=== PATIENT | male | born 1960 | race Caucasian/White ===

== ENCOUNTER 2024-06-24 14:30 | Inpatient (IN) | payer BC, SELFPAY ==
[2024-06-24] VITALS (15 sets, daily range): BP systolic 133–164; BP diastolic 85–125; BMI 35.8
--- NOTE | 2024-06-24 12:04 | ED.GENMED ---
History of Present Illness
<LUX Newby - Last Filed: 06/24/24 13:56>
General
Chief Complaint: Abdominal Symptoms
Source: patient
Exam Limitations: none
Time Seen by Provider: 06/24/24 11:54
Nursing documentation reviewed up to this point in time: agreed with
History of Present Illness
History of Present Illness:
Patient is a 61-year-old male who presents to the ER for evaluation of abdominal discomfort since last with decreased appetite bloating some liquidy diarrhea. Patient reports that he developed cough several days ago and was very short of breath
today with exertion. reports patient had some swelling in his lower extremities for a while. Patient denies any associated chest pain. He denies any history of clotting disorder or DVT PE in the past. He does have a history of hypertension
takes amlodipine. He is followed by functional medicine specialist. He has never been seen by cardiology. He reports he did have a low-grade fever of 99.
Review of Systems
<LUX Newby - Last Filed: 06/24/24 13:56>
Review of Systems
Allergies reviewed?: Yes
Other source history: family
All Other Systems: ROS reviewed and negative except as documented in HPI and ROS
Constitutional: Reports fever
EENT: Reports no symptoms
Respiratory: Reports cough and trouble breathing
Cardiac: Reports no symptoms; Denies chest pain
ABD/GI: Reports abdominal pain, diarrhea and other (bloating dec appetite )
: Reports no symptoms
Musculoskeletal: Reports other (Off-and-on chronic lower extremity swelling)
Skin: Reports no symptoms
Hematologic/Lymphatic: Reports no symptoms
Psychiatric: Reports no symptoms
Phy Exam
<LUX Newby - Last Filed: 06/24/24 13:56>
General Physical Exam
General Presentation: no apparent distress
General age: appears stated age
General Skin: warm and dry
General Habitus: normal
General Mental: alert
General Hydration: appears well hydrated
Cardiovascular Exam
Cardiovascular Exam: regular rate/rhythm, no murmur and normal peripheral pulses
Pulmonary Exam
Pulmonary Exam: other (+ cough slight exp wheeze that cleared with cough )
Neurological Exam
Neurological Exam: alert and oriented x3
Musculoskeletal Exam
Musculoskeletal Exam: full ROM
Skin Exam
Skin Exam: normal color and warm/dry
Psychiatric Exam
Psychiatric Exam: normal mood/affect
Course
<LUX Newby - Last Filed: 06/24/24 13:56>
Orders/Labs/Results
Orders:
Orders
06/24/24 12:12
Cardiac Monitoring- Treatment ONCE
06/24/24 12:13
Portable Chest Xray [CR Chest Portable - 1 View] Urgent
Comment:
Reason For Exam: sob
Reason Study Needs to be Portable: Unable to Transport
06/24/24 12:15
Electrocardiogram (*1) Stat
Reason for Study: Other
Other Reason for Exam: chest pain
Cardiac Monitoring- Treatment ONCE
EKG- Treatment ONCE
06/24/24 12:16
IV Insert/Care/Rem.- Treatment PRN
06/24/24 12:28
Complete Blood Count/With Diff Urgent
Comprehensive Metabolic Panel Urgent
DDimer [D-Dimer] Urgent
Lipase Urgent
Pro-BNP [NT-proBNP] Urgent
Troponin I Urgent
06/24/24 12:53
CT Abd/pelvis W Iv Cont Urgent
Comment:
Reason For Exam: abd pain
Azithromycin 500 mg/250 ml [Zithromax Infusion] 500 mg in 250 ml IV NOW
CefTRIAXone [Rocephin] 1,000 mg IV NOW STA
06/24/24 12:54
Furosemide [Lasix] 40 mg IV NOW STA
06/24/24 12:59
Lactic Acid Urgent
Sterile Water [Sterile Water For Injection] 10 ml .ROUTE .STK-MED ONE
06/24/24 13:18
Aspirin Chewable [Low Strength Aspirin] 324 mg PO NOW STA
06/24/24 13:43
Heparin 4,000 units IV NOW STA
Nitroglycerin 100 mg/250 ml [Nitroglycerin Premix] 100 mg in 250 ml IV NOW
Initial dose in mcg/min, then titrate:: 5
Titrate to keep:: SBP < 160 mmHg
Titrate by mcg/min:: 5 mcg/min, may increase by 10 mcg/min if dose > 20 mcg/min
Frequency of titrations (minutes):: every 3-5 minutes
Maximum dose in mcg/min:: 200
Begin to taper infusion when:: Remained at goal for 2hrs
Taper by mcg/min:: 5 mcg/min
Frequency of taper (minutes) if patient maintains goal:: 30
Taper to off?: Yes
If infusion off & no longer maintaining goal:: Contact Provider
Pharmacy Request to Place See Dose Instructions PO NOW STA
Discontinue all Active Warfarin orders?: Yes
06/24/24 13:44
PTT Urgent
Comment: Obtain baseline before beginning heparin infusion if not already collected
Nursing to Place Non Medication Order As Directed
Physician Order: PTT 6 hours after initial start of Heparin infusion
06/24/24 13:45
Heparin 80019 Units/250 ml 25,000 units in 250 ml IV PER PROTOCOL
Weight to be used for heparin protocol in kilograms (kg):: 129.8
Protocol:: Cardiac Tx/Acute Coronary
PTT Goal Range to be used:: PTT 73 to 111 seconds
Order type:: Initial
INITIAL Infusion Dose (UNITS/KG/hr) & then follow protocol:: 12 units/kg/hr
Infusion Dose in UNITS/hr & then follow protocol (UNITS/hr):: 1,000
INFUSION RATE in mL/hr & then follow protocol (mL/hr):: 10
PTT less than or equal to 64 seconds:: Increase rate by 200 units/hr (+ 2 mL/hr)
PTT 64.1 to 72.9 seconds:: Increase rate by 100 units/hr (+ 1 mL/hr)
PTT 73 to 111 seconds:: Target Range. No change in rate.
PTT 111.1 to 130.9 seconds:: Decrease rate by 100 units/hr (- 1 mL/hr)
PTT 131 to 199.9 seconds:: HOLD for 1 hr. Then decrease rate by 200 units/hr (- 2 mL/hr)
PTT greater than or equal to 200 seconds:: HOLD for 2 hrs & Notify Provider. Then decrease by 200 units/hr (-
2 mL/hr)
Lab follow-up:: Each change, PTT q6h until 2 consecutive are therapeutic. Then PTT
daily.
06/24/24 13:53
Echo 2D MMode Color/Doppler Stat
Reason for Study: CHF/ACS
Cardiology Consult: Heber Baca
06/24/24 13:55
Consult Cardiology [CARDIOLOGY CONSULT] Routine
Consulting Provider: Heber Jon
Was physician already notified: Yes
Reason for consult: elevated troponin
Atorvastatin [Lipitor] 80 mg PO QPM
06/24/24 13:59
Electrocardiogram (*1) Routine
Reason for Study: Chest Pain
06/24/24 14:[address] See Dose Instructions IV DIRECTED
06/24/24 14:10
Admit/Transfer Patient As Directed
Co-Sign Provider:
Level of Care: Inpatient admission
Assign to:: IVU
Physician / Group: josseline
Diagnosis: nstemi
Reason for Hospitalization: nstemi
Expected length of stay greater than two midnights?: Yes
ELOS- Estimated Length of Stay in days: 2
I certify the patient meets the requirements for IP care: Yes
Code Status As Directed
Resuscitation Status: Full Code
PRN Pain Medication Management As Directed
May give lesser potent ordered pain med per pt: Yes
preference::
Protocol:: Medication orders for pain may be administered in a
manner that supports deferring to patient preference
when the pt is:
- Requesting an ordered lesser potent pain medication.
Least to most potent pain medications are defined
as: acetaminophen < NSAID < tramadol < opioids
(morphine, oxycodone, hydromorphone).
- Requesting a lesser dose of the same medication IF
ORDERED.
- Requesting a less intrusive route of administration
if both routes are prescribed by the provider (PO <
IV).
06/24/24 14:20
COVID-19 Antigen Urgent
Source: Nasal Swab
Respiratory Culture/Gram Stain Urgent
DAVIDE Source: Sputum
Specimen Description:
06/24/24 14:30
Troponin I Stat
06/24/24 16:00
Furosemide [Lasix] 40 mg IV BID AT 0800,1600
06/25/24 08:00
Amlodipine [Norvasc] 10 mg PO DAILY
Aspirin Low Dose EC [Aspir Low (Enteric Coated)] 81 mg PO DAILY
Abnormal Lab Results
06/24/24
12:28
WBC 15.9 H 10^3/uL
(4.8-10.8)
RBC 4.54 L 10^6/uL
(4.70-6.10)
Hct 38.8 L %
(39.0-52.0)
MPV 10.7 H fL
(7.4-10.4)
Abs Immat Gran (auto) 0.1 H 10^3/uL
(0-0.05)
Absolute Neuts (auto) 12.9 H 10^3/uL
(1.4-6.5)
Absolute Monos (auto) 0.9 H 10^3/uL
(0.1-0.6)
Immature Gran % 0.6 H %
(0-0.5)
Neutrophils % 80.8 H %
(42.2-75.2)
Lymphocytes % 12.4 L %
(20.5-51.1)
D-Dimer 1.03 H ug/mlFEU
(0.00-0.50)
BUN 34 H mg/dl
(9-20)
Creatinine 1.5 H mg/dL
(0.7-1.3)
Glucose 122 H mg/dl
(70-99)
ALT 62 H U/L
(0-50)
Troponin I 4.030 H* ng/ml
06/24/24 12:28
06/24/24 12:28
Vital Signs
Initial and Last Documented VS:
Initial Vital Signs
Temp Pulse Resp BP Pulse Ox
97.5 F 89 16 144/95 94
06/24/24 11:18 06/24/24 11:18 06/24/24 11:18 06/24/24 11:18 06/24/24 11:18
Last Documented Vital Signs
Temp Pulse Resp BP Pulse Ox
98.5 F 99 29 143/110 83
06/24/24 12:12 06/24/24 14:30 06/24/24 14:30 06/24/24 12:39 06/24/24 14:30
Furniture Removalist'S Assistant consulted with Physician
Furniture Removalist'S Assistant consulted with physician?: Yes
Name of Physician Consulted: Jess
<Alia Mercado MD - Last Filed: 06/24/24 14:50>
Orders/Labs/Results
Orders:
Orders
06/24/24 12:12
Cardiac Monitoring- Treatment ONCE
06/24/24 12:13
Portable Chest Xray [CR Chest Portable - 1 View] Urgent
Comment:
Reason For Exam: sob
Reason Study Needs to be Portable: Unable to Transport
06/24/24 12:15
Electrocardiogram (*1) Stat
Reason for Study: Other
Other Reason for Exam: chest pain
Cardiac Monitoring- Treatment ONCE
EKG- Treatment ONCE
06/24/24 12:16
IV Insert/Care/Rem.- Treatment PRN
06/24/24 12:28
Complete Blood Count/With Diff Urgent
Comprehensive Metabolic Panel Urgent
DDimer [D-Dimer] Urgent
Lipase Urgent
Pro-BNP [NT-proBNP] Urgent
Troponin I Urgent
06/24/24 12:53
CT Abd/pelvis W Iv Cont Urgent
Comment:
Reason For Exam: abd pain
Azithromycin 500 mg/250 ml [Zithromax Infusion] 500 mg in 250 ml IV NOW
CefTRIAXone [Rocephin] 1,000 mg IV NOW STA
06/24/24 12:54
Furosemide [Lasix] 40 mg IV NOW STA
06/24/24 12:59
Lactic Acid Urgent
Sterile Water [Sterile Water For Injection] 10 ml .ROUTE .STK-MED ONE
06/24/24 13:18
Aspirin Chewable [Low Strength Aspirin] 324 mg PO NOW STA
06/24/24 13:43
Heparin 4,000 units IV NOW STA
Nitroglycerin 100 mg/250 ml [Nitroglycerin Premix] 100 mg in 250 ml IV NOW
Initial dose in mcg/min, then titrate:: 5
Titrate to keep:: SBP < 160 mmHg
Titrate by mcg/min:: 5 mcg/min, may increase by 10 mcg/min if dose > 20 mcg/min
Frequency of titrations (minutes):: every 3-5 minutes
Maximum dose in mcg/min:: 200
Begin to taper infusion when:: Remained at goal for 2hrs
Taper by mcg/min:: 5 mcg/min
Frequency of taper (minutes) if patient maintains goal:: 30
Taper to off?: Yes
If infusion off & no longer maintaining goal:: Contact Provider
Pharmacy Request to Place See Dose Instructions PO NOW STA
Discontinue all Active Warfarin orders?: Yes
06/24/24 13:44
PTT Urgent
Comment: Obtain baseline before beginning heparin infusion if not already collected
Nursing to Place Non Medication Order As Directed
Physician Order: PTT 6 hours after initial start of Heparin infusion
06/24/24 13:45
Heparin 78354 Units/250 ml 25,000 units in 250 ml IV PER PROTOCOL
Weight to be used for heparin protocol in kilograms (kg):: 129.8
Protocol:: Cardiac Tx/Acute Coronary
PTT Goal Range to be used:: PTT 73 to 111 seconds
Order type:: Initial
INITIAL Infusion Dose (UNITS/KG/hr) & then follow protocol:: 12 units/kg/hr
Infusion Dose in UNITS/hr & then follow protocol (UNITS/hr):: 1,000
INFUSION RATE in mL/hr & then follow protocol (mL/hr):: 10
PTT less than or equal to 64 seconds:: Increase rate by 200 units/hr (+ 2 mL/hr)
PTT 64.1 to 72.9 seconds:: Increase rate by 100 units/hr (+ 1 mL/hr)
PTT 73 to 111 seconds:: Target Range. No change in rate.
PTT 111.1 to 130.9 seconds:: Decrease rate by 100 units/hr (- 1 mL/hr)
PTT 131 to 199.9 seconds:: HOLD for 1 hr. Then decrease rate by 200 units/hr (- 2 mL/hr)
PTT greater than or equal to 200 seconds:: HOLD for 2 hrs & Notify Provider. Then decrease by 200 units/hr (-
2 mL/hr)
Lab follow-up:: Each change, PTT q6h until 2 consecutive are therapeutic. Then PTT
daily.
10/05/24 13:53
Echo 2D MMode Color/Doppler Stat
Reason for Study: CHF/ACS
Cardiology Consult: Heber Baca
06/24/24 13:55
Consult Cardiology [CARDIOLOGY CONSULT] Routine
Consulting Provider: Heber Jon
Was physician already notified: Yes
Reason for consult: elevated troponin
Atorvastatin [Lipitor] 80 mg PO QPM
06/24/24 13:59
Electrocardiogram (*1) Routine
Reason for Study: Chest Pain
06/24/24 14:[address] See Dose Instructions IV DIRECTED
06/24/24 14:10
Admit/Transfer Patient As Directed
Co-Sign Provider:
Level of Care: Inpatient admission
Assign to:: IVU
Physician / Group: josseline
Diagnosis: nstemi
Reason for Hospitalization: nstemi
Expected length of stay greater than two midnights?: Yes
ELOS- Estimated Length of Stay in days: 2
I certify the patient meets the requirements for IP care: Yes
Code Status As Directed
Resuscitation Status: Full Code
PRN Pain Medication Management As Directed
May give lesser potent ordered pain med per pt: Yes
preference::
Protocol:: Medication orders for pain may be administered in a
manner that supports deferring to patient preference
when the pt is:
- Requesting an ordered lesser potent pain medication.
Least to most potent pain medications are defined
as: acetaminophen < NSAID < tramadol < opioids
(morphine, oxycodone, hydromorphone).
- Requesting a lesser dose of the same medication IF
ORDERED.
- Requesting a less intrusive route of administration
if both routes are prescribed by the provider (PO <
IV).
06/24/24 14:20
COVID-19 Antigen Urgent
Source: Nasal Swab
Respiratory Culture/Gram Stain Urgent
DAVIDE Source: Sputum
Specimen Description:
06/24/24 14:30
Troponin I Stat
06/24/24 16:00
Furosemide [Lasix] 40 mg IV BID AT 0800,1600
06/25/24 08:00
Amlodipine [Norvasc] 10 mg PO DAILY
Aspirin Low Dose EC [Aspir Low (Enteric Coated)] 81 mg PO DAILY
Abnormal Lab Results
06/24/24
12:28
WBC 15.9 H 10^3/uL
(4.8-10.8)
RBC 4.54 L 10^6/uL
(4.70-6.10)
Hct 38.8 L %
(39.0-52.0)
MPV 10.7 H fL
(7.4-10.4)
Abs Immat Gran (auto) 0.1 H 10^3/uL
(0-0.05)
Absolute Neuts (auto) 12.9 H 10^3/uL
(1.4-6.5)
Absolute Monos (auto) 0.9 H 10^3/uL
(0.1-0.6)
Immature Gran % 0.6 H %
(0-0.5)
Neutrophils % 80.8 H %
(42.2-75.2)
Lymphocytes % 12.4 L %
(20.5-51.1)
D-Dimer 1.03 H ug/mlFEU
(0.00-0.50)
BUN 34 H mg/dl
(9-20)
Creatinine 1.5 H mg/dL
(0.7-1.3)
Glucose 122 H mg/dl
(70-99)
ALT 62 H U/L
(0-50)
Troponin I 4.030 H* ng/ml
06/24/24 12:28
06/24/24 12:28
Vital Signs
Initial and Last Documented VS:
Initial Vital Signs
Temp Pulse Resp BP Pulse Ox
97.5 F 89 16 144/95 94
06/24/24 11:18 06/24/24 11:18 06/24/24 11:18 06/24/24 11:18 06/24/24 11:18
Last Documented Vital Signs
Temp Pulse Resp BP Pulse Ox
98.5 F 99 29 143/110 83
06/24/24 12:12 06/24/24 14:30 06/24/24 14:30 06/24/24 12:39 06/24/24 14:30
<LUX Newby - Last Filed: 06/24/24 13:56>
MDM/Problems Addressed
MDM/Problems Addressed:
Patient is document is a 61-year-old male who presented with abdominal pain bloating and recent cough temp was 99 at home yesterday with short shortness of breath shortness of breath that worsened today. reports he has had intermittent
swelling of his legs. Patient was very tachypneic with ambulation. Patient presents hypoxic mildly tachycardic right middle expiratory wheeze that clears with coughing. He is hypoxic was placed on 2 L. Portable chest x-ray does show an moderate
to severe CHF there is a suspected superimposed left upper lobe pneumonia which is consistent with his presentation of cough low-grade fever and elevated white count. Will treat Lasix for CHF will give community-acquired pneumonia antibx. No
documented cardiac history. He is followed by family doctor who is a functional medicine specialist.
Will check CAT scan of the abdomen abdominal pain bloating however patient will require admission .
Lab called patient's troponin is elevated at 4.03 and there is elevation on patient's EKG with reciprocal changes patient has no chest pain the only thing he complains about is abdominal bloating for the past week. Christin at bedside . d/c with
cardiology repairer controller tester.
Patient evaluated by cardiology as discussed IV nitro as well as IV heparin ordered plan to do echo. Patient to be admitted to the hospital service discussed with admitting hospitalist.
Chronic conditions affecting care:
htn
<LUX Newby - Last Filed: 06/24/24 13:56>
*Radiology
Radiology exam reviewed: radiology read reviewed
*Pulse Oximetry
Patient hypoxic: yes
*EKG
Interpreted by ED Provider?: Yes
Interpretation: abnormal
Heart Rate: 92
Rate: normal
Rhythm: sinus
Ischemia: ST elevation
*Critical Care Note
Total Time (30-74mins, 75-104mins- exclusive of procedures): Not Applicable
comment:
Critical care statement: A total of 40 minutes of critical care time was provided for this patient. This includes management of unstable vital signs, evaluation of the patient at bedside, reviewing the patient's pertinent medical records, discussion
with consultants, review of old EKGs and review of pertinent medical records. This time with separate from time utilized to perform the aforementioned documented procedures
<LUX Newby - Last Filed: 06/24/24 13:56>
Patient Management
Discussion with other providers: Wrapping Clerk (cardiology: DR Baca )
ED Attending Note
<LUX Newby - Last Filed: 06/24/24 13:56>
-
Portions of this chart may have been created with voice recognition software.� Occasional wrong word or��sound alike� substitutions may have occurred due to the inherent limitations of voice recognition software.
<Alia Mercado MD - Last Filed: 06/24/24 14:50>
ED Attending Note
Patient seen and examined by attending physician: Yes
I performed the substantive portion of visit, reviewed & personally made and approve the management plan that is documented in note by myself or CHAPINCITO.: Yes
ED Attending Note:
Patient appears tachypneic but is fully awake and conversational. Patient has decreased breath sounds with bilateral crackles. Abdomen is soft and mildly distended. Patient's lab work and EKG are concerning for non-STEMI. For now, patient will
be started on Lasix, aspirin, nitro drip and heparin drip for treatment for non-STEMI and CHF
Discharge Plan
Departure
Patient Disposition: Admit
Date of Disposition: 06/24/24
Time of Disposition: 13:47
Admit to: ICU
Admit to doctor: hosptitalist
Presentation/result/management discussed w/ accepting MD/DO: Hospitalist
Patient with high blood pressure during this ER visit?: Yes
Condition: Critical
Discharge Problem:
stemi, CHF (congestive heart failure), Pneumonia
Interventions
Interventions:
*Risk Screen - Suicide Last Done: 06/24/24 11:18
*Neglect/Abuse Screening Last Done: 06/24/24 11:18
ED- Fall Risk Assessment Last Done: 06/24/24 12:32
*ED COVID-19 Vaccine History Last Done: 06/24/24 12:14
PW-Bjwlnb-Njpuavvwen Assessment Last Done: 06/24/24 12:06
[2024-06-24 12:39] LABS: % Basophils 0.3 % (0-2); % Eosinophils 0.1 % (0-6); % Immature Granulocytes 0.6 % (0-0.5); % Lymphocytes 12.4 % (20.5-51.1); % Monocytes 5.8 % (1.7-9.3); % Neutrophils 80.8 % (42.2-75.2); Absolute Immature Granulocytes 0.1 10^3/uL (0-0.05); Absolute Monocytes 0.9 10^3/uL (0.1-0.6); Absolute Neutrophils 12.9 10^3/uL (1.4-6.5); Hematocrit 38.8 % (39.0-52.0); Hemoglobin 13.3 g/dL (13.0-18.0); Mean Corp Hgb Conc. 34.3 g/dL (33.0-37.0); Mean Corpuscular Hgb 29.3 pg (27.0-31.0); Mean Corpuscular Volume 85.5 fL (80.0-94.0); Mean Platelet Volume 10.7 fL (7.4-10.4); Nucleated Red Blood Cells % 0 % (-); Platelet Count 354 10^3/uL (130-400); Red Blood Cell Count 4.54 10^6/uL (4.70-6.10); Red Cell Dist. Width 14.2 % (11.5-14.5); White Blood Cell Count 15.9 10^3/uL (4.8-10.8)
[2024-06-24 12:51] LABS: ALT (SGPT) 62 U/L (0-50); AST (SGOT) 47 U/L (17-59); Albumin 4.2 g/dl (3.5-5.0); Alkaline Phosphatase 60 U/L (38-126); Blood Urea Nitrogen 34 mg/dl (9-20); Calcium 9.2 mg/dl (8.4-10.2); Carbon Dioxide 23 mmol/L (22-30); Chloride 105 mmol/L (98-107); Estimated Creatinine Clearance 74 ml/min; Glucose 122 mg/dl (70-99); Lipase 101 U/L (23-300); Potassium 4.2 mmol/L (3.5-5.1); Sodium 142 mmol/L (135-145); Total Bilirubin 1.1 mg/dl (0.2-1.3); Total Protein 7.3 g/dl (6.3-8.2); eGFR 52.31
[2024-06-24 13:10] LABS: D-Dimer 1.03 ug/mlFEU (0.00-0.50)
[2024-06-24 13:20] LABS: NT-proBNP 3300 pg/ml
[2024-06-24] MEDS: LASIX 40 MG IV ×2 (13:34→15:55)
[2024-06-24] MEDS: ZITHROMAX INFUSION 250 IV (13:37)
[2024-06-24] MEDS: ROCEPHIN 1000 MG IV (13:38)
[2024-06-24] MEDS: LOW STRENGTH ASPIRIN 324 MG PO (13:43)
--- NOTE | 2024-06-24 14:21 | HPS.HSE ---
Family Physician
-
Family Physician: Alia Reddy MD
Chief Complaint
-
chest discomfort
History of Present Illness
63-year-old male past medical history of hypertension, prediabetes, presenting with abdominal discomfort, decreased appetite, and nausea which originally started 1 week ago associate with loose stools. He tried taking Tylenol and Gas-X with some
improvement.
Yesterday he developed chest congestion, productive cough, chills associate with shortness of breath with exertion. He has been continue to have loose stools. He has been having lower extremity edema for some time. He is unsure if he has gained
or lost weight. He has never seen a nursery attendant.
He denies any recent antibiotic use. No sick contacts. No sore throat.
No family history of heart disease.
Denies smoking or alcohol use.
Medical History
Past Medical History
Past Medical History: Reports Other ( hypertension, prediabetes, )
Past Surgical History: Reports None
Social History
Tobacco: Non-smoker
Alcohol: None
Drug: None
Family History
Family History: Not pertinent
Allergies / Home Medications
Allergies reflects when Allergies were last updated in [employer].
Home Medications with original date entered in [employer]
Allergy/Medication List:
Allergies
Allergy/AdvReac Type Severity Reaction Status Date / Time
No Known Allergies Allergy Unverified 06/24/24 11:18
Review of Systems
-
History Source: Patient
A 12 point ROS was completed and negative except as noted: Yes
Constitutional: Reports No Symptoms
EENT: Reports No Symptoms
Respiratory: Reports See HPI
Cardiac: Reports See HPI
Abdomen/GI: Reports See HPI
: Reports No Symptoms
Musculoskeletal: Reports No Symptoms
Skin: Reports No Symptoms
Neurological: Reports No Symptoms
Endocrine: Reports No Symptoms
Hematologic/Lymphatic: Reports No Symptoms
Psych: Reports No Symptoms
Physical Exam
Vital Signs
Vital Signs
Temp Pulse Resp BP Pulse Ox
98.5 F 93 22 164/125 90
06/24/24 12:12 06/24/24 12:12 06/24/24 12:12 06/24/24 12:12 06/24/24 12:12
Physical Exam
General: Well Developed, Well Nourished and No Apparent Distress
HEENT: NormoCephalic, Moist mucous membranes and Atraumatic
Respiratory: Clear
Cardiac: S1/S2, Regular Rhythm and Peripheral Edema; No Murmur or Rub
GI: Soft, Non Tender, Non Distended and Normal Bowel Sounds; No Organomegaly
Rectal: Deferred by Provider
Musculoskeletal: No Clubbing, No Cyanosis and No Edema
Skin: No Rash
Neuro: Nonfocal/grossly intact
Laboratory Results
-
06/24/24 12:28
06/24/24 12:28
Laboratory Results
Total Bilirubin 1.1 mg/dl (0.2-1.3) 06/24/24 12:28
AST 47 U/L (17-59) 06/24/24 12:28
ALT 62 U/L (0-50) H 06/24/24 12:28
Alkaline Phosphatase 60 U/L (38-126) 06/24/24 12:28
Troponin I 4.030 ng/ml H* 06/24/24 12:28
Lipase 101 U/L (23-300) 06/24/24 12:28
Data Reviewed
-
Lab Data: Labs Reviewed by me
Old Records: Reviewed
Impression/Plan
-
IMPRESSION:
PLAN:
# NSTEMI
-EKG shows St elevation in v2, depressions in leads aVF, aVL, V6
-Troponin of 4 continue to trend
-Aspirin given
-Heparin drip
-Nitroglycerin drip
-Check A1c and lipid panel
-Echo
-N.p.o. for now, as catheterization may be necessary if patient clinically worsens otherwise plan for catheterization on Wednesday
# Acute CHF exacerbation
-Cardiac BNP of 3300
-Chest x-ray shows moderate to severe CHF
-Check I's and O's, daily weights
-40 IV Lasix twice daily
# Left upper lobe pneumonia
-Leukocytosis
-Check sputum culture
-Ceftriaxone/azithromycin
-Mucinex
-Check COVID
# Abdominal discomfort/loose stools
-CT abdomen pelvis pending
Chronic kidney disease
-Creatinine 1.5 from 1.3 four years ago
Essential hypertension
-Continue amlodipine
History of prediabetes
Full code
DVT prophylaxis�heparin drip
Cardiac diet
[2024-06-24] MEDS: NITROGLYCERIN PREMIX 250 IV (14:57)
[2024-06-24 15:11] LABS: APTT 36.7 Sec (23.4-35.0)
[2024-06-24 15:12] LABS: Lactic Acid 2.3 mmol/L (0.7-2.0)
[2024-06-24 15:16] LABS: COVID-19 Antigen Negative (Negative)
[2024-06-24] MEDS: HEPARIN 4000 UNITS IV (15:21)
[2024-06-24] MEDS: HEPARIN 25000 UNITS/250 ML IV (15:25)
[2024-06-24 17:24] LABS: ACT-LR - POC 163 Seconds (116-155)
[2024-06-24 17:39] LABS: ACT-LR - POC 190 Seconds (116-155)
[2024-06-24 17:52] LABS: ACT-LR - POC 258 Seconds (116-155)
--- NOTE | 2024-06-24 18:19 | PTCARENOTE ---
Pt arrived from ED via stretcher, heparin infusion in progress, nitroglycerin infusion at 5mcg. Pt denied any discomfort but appeared SOB at rest, needing to sit up, on 4L oxygen. Pt seen by . Pt taken to casting house laborer at @16:55.
[2024-06-24 18:24] LABS: ACT-LR - POC 178 Seconds (116-155)
--- NOTE | 2024-06-24 18:40 | ITS.CL.CATH ---
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
Cardiac Catheterization
Procedure Report:
LEFT HEART CATH AND CORONARY INTERVENTION
Date of Procedure: June 24, 2024
Referring: Dr. Heber Jon
PROCEDURES:
1. Left heart catheterization with coronary angiography
2. Successful stenting of the proximal LAD with a 3.0 x 22 mm Jefferson stent that was postdilated to 20 dawood
3. Intravascular ultrasound
INDICATION: This is a 63-year-old gentleman with a PMH notable for hypertension who presented to [facility] with complaints of shortness of breath and abdominal discomfort. He absolutely denied any chest discomfort. He approximately 5
days ago he experienced epigastric pressure and chest discomfort while his was out of town. His symptoms lasted several hours. Then during the week he felt better but about 2-3 days ago he became more short of breath and presented to
[facility] with complaints of abdominal discomfort. He was markedly hypertensive with blood pressures of 165/125 mmHg. He was started on antibiotics for a possible community acquired pneumonia. His troponin returned at 4.03 ng/ml. He
was started on IV heparin and IV nitroglycerin. A stat echocardiogram was performed and was notable for an estimated ejection fraction of 30-35% and wall motion abnormality in LAD distribution. He remained very short of breath, however, was
comfortable and denied any chest discomfort. His repeat troponin returned at 3.54 ng/ml. Unfortunately, he remained very hypertensive and short of breath and ultimately the decision was made to refer for coronary angiography
ACCESS: Right radial artery, 6 Angolan sheath. Unsuccessful right common femoral venous access using ultrasound guidance. Several arterial punctures occurred. Manual pressure was held after attempted access and at the conclusion of the procedure
when a small hematoma was noted.
HEMODYNAMICS (mmHg):
AO (s/d, m) : 129/93, 109
LV (s/d) : 130/23
LVEDP : 37
CORONARY FINDINGS
Dominance: Right
LEFT MAIN: Normal
LEFT ANTERIOR DESCENDING: The LAD arises normally from the left main and runs in the anterior interventricular groove. The LAD becomes 100% occluded beyond the first septal wrap knitting machine operator. The distal vessel is noted to fill via right to left
collaterals
CIRCUMFLEX: The circumflex is a medium caliber nondominant vessel giving rise to a single large obtuse marginal branch and several smaller obtuse marginal branches. Only minor irregularities are noted.
RIGHT CORONARY: The right coronary artery is a large-caliber dominant vessel that is widely patent and demonstrates only minor luminal irregularities over its course the PDA is large and the posterolateral branch is large.
VENTRICULOGRAPHY: Not done
ANGIOPLASTY PROCEDURE DETAIL: Upon review of the diagnostic catheterization images the decision was made to proceed with percutaneous revascularization of the occluded segment in the proximal LAD given the patient's heart failure and respiratory
insufficiency. Patient had received 324 mg of aspirin in the emergency room but vomited and was not sure if he was able to keep the medication down. An additional 324 mg of aspirin was given prior to referred for coronary angiography. Double
bolus Integrilin was administered as he was antiplatelet na�ve coming into the procedure. Intravenous heparin was given and the ACT was monitored throughout the procedure.
The origin of the left main was cannulated with a 6 Angolan EBU 3.75 guiding catheter. A long BMW guidewire crossed the occluded segment and was advanced to the first diagonal branch. A second short BMW guidewire was advanced to the true LAD apex.
Balloon predilation was performed using a 2.5 x 15 mm Euphora balloon. Antegrade flow was reestablished into the mid LAD and diagonal branch. A 3.0 x 22 mm Jefferson stent was then positioned with angiographic and fluoroscopic guided. The stent was
implanted at nominal pressures. Intravascular ultrasound was then performed in the distal portion of the stent appeared well sized to the LAD dimension. The proximal portion of the stent appeared somewhat underexpanded and was postdilated to high
pressures with a 3.5 mm noncompliant balloon to 20 dawood.
RADIATION SUMMARY: Fluoro Time (min): 14.4, Dose (mGy): 2687, DAP (Gy.cm2) : 163
CONCLUSIONS
1. Late presentation of anterior wall myocardial infarction complicated by heart failure and respiratory insufficiency.
2. Successful stenting of the proximal LAD with a 3.0 x 22 mm Jamarcus stent that was implanted at nominal pressures and postdilated in its proximal midportion with a 3.5 mm noncompliant balloon to 20 dawood
RECOMMENDATIONS
1. Uninterrupted dual antiplatelet therapy for at least 1 year
2. Creatinine heading into the procedure was modestly elevated. He will need guideline directed medical therapy for LV dysfunction given the estimated ejection fraction of 30-35% by echocardiogram prior to the interventional procedure. He will
need repeat imaging 40-90 days post revascularization to reassess LVEF
3. High intensity statin therapy
Copy to: Dr. Heber Jon
--- NOTE | 2024-06-24 19:16 | CON.CAR ---
Consultation
Consultation Request
Date/Time Consultation Requested: 06/24/24
Date/Time Consultation Performed: 06/24/24
Requesting Provider: Pedro
Performing Provider: Dontrell
Reason for Consultation: elevated troponin, abnormal ECG
Medical History
-
Chief Complaint: abd pain
History of Present Illness:
63M PMHx hypertension who presents for evaluation of abdominal discomfort, dyspnea and cough
Patient reports that he felt unwell approximately 5 days ago, had some epigastric discomfort which was approx 5 out of 10 in intensity as well diarrhea
Approx 2 days prior to admission he developed dyspnea, cough and chest pressure. Tells me chest pressure was approx 2 out of 10 in intensity earlier today but at the time of my evaluation in the emergency department reported that he was feeling
back to baseline.
In the DHER was hypertensive and hypoxic requiring supplemental O2. Identified as having diffuse infiltrates on CXR c/w pulm edema. ProBNP >3k. Troponin intially 4.0. ECG concerning for recent anterior STEMI.
Some of the history provided by his and daughter who are at bedside
PMHx:
HTN
Late entry, patient seen initially around 1pm
Past Medical History
Past Medical History: Other (as above)
Past Surgical History: Other (as above)
Social History
Tobacco: Non-Smoker
Living: With Family
Family History
Family History: Reviewed & Not Pertinent
Allergies / Home Medications
Allergy/AdvReac Type Severity Reaction Status Date / Time
No Known Allergies Allergy Unverified 06/24/24 11:18
�Medication �Instructions �Recorded �Confirmed �Type
amlodipine 10 mg tablet 10 mg PO DAILY 06/24/24 06/24/24 History
Review of Systems
-
History Source: Patient
All other systems: Negative unless noted
Abdomen/GI: Abdominal Pain and Diarrhea
Physical Exam
Vital Signs
Temp Pulse Resp BP Pulse Ox
98.5 F 88 24 144/92 94
10/05/24 12:12 06/24/24 19:02 06/24/24 16:45 06/24/24 19:02 06/24/24 19:02
Lab Results
06/24/24 12:28
06/24/24 12:28
Troponin I 3.540 ng/ml H* 06/24/24 14:52
Aaj-V-Ekujwqzgzad Pept 3300 pg/ml 06/24/24 12:28
Physical Exam
General: Well Developed
HEENT: Normocephalic
Respiratory: Crackles (throughout, tachypneic on supplemental O2)
Cardiac: S1/S2, Regular Rhythm, JVD (difficult to assess) and Other (+gallop)
Musculoskeletal: No Edema and Other (warm and well perfused)
Skin: Warm and Dry
Neuro: AO x 3
Psych: Calm
Impression / Plan
-
Door Technician: None prior to admission, initially seen by Dontrell
Assessment:
Acute HFrEF
Late presentation of anterior STEMI
s/p pLAD BO (06/24/24)
HTN
Plan:
-Presents with abd discomfort, dyspnea and cough found to be in acute decompensated HF
-ECG with anterior infarct, recent
-Troponin elevated 4.0 ->3.5
-TTE with reduced LVEF 30-35% with LAD territory wall motion abnormality
-Given presentation of high risk NSTEMI/ late presentation of STEMI he underwent LHC 06/24/24 and pLAD PCI was performed
#HFrEF
-Cont IV lasix BID for acute HF
-Start BB when more compensated
-Tentatively start ARB with plan to transition to Entresto
#ACS
-ASA/Brilinta started, continue x1yr
-Start high intensity statin
-Eventually BB
-Cardiac rehab
Discussed with , daughter, interventionalist, ER staff, nursing staff
CC: 68 min
Data Reviewed
-
EKG: Tracing Personally Visualized and interpreted
Radiology: Image Personally Visualized and interpreted
CT Scan: Report Reviewed by me
Medical Tests (Nuc Med, Echo etc): Image Personally Visualized and interpreted
Labs: Labs Reviewed by me
Old Records: Reviewed
Critical Care Time (in minutes): 68
[2024-06-24 20:15] LABS: HDL Cholesterol 33 mg/dl; LDL Cholesterol, Calculated 202 mg/dl; Total Cholesterol 260 mg/dl (50-199); Triglyceride 128 mg/dl (10-149); Very Low Density Lipoprotein 25 mg/dl (0-30)
[2024-06-24] MEDS: ROBITUSSIN DM 5 ML PO (21:33)
[2024-06-24] MEDS: LIPITOR 80 MG PO (21:33)
[2024-06-24] MEDS: LIPITOR PO (21:41)
[2024-06-24] MEDS: TUMS CHEWABLE TABLET 200 MG PO (22:35)
[2024-06-24] MEDS: APRESOLINE 25 MG PO (23:20)
[2024-06-25] VITALS (14 sets, daily range): BP systolic 93–148; BP diastolic 57–91; BMI 35.7
--- NOTE | 2024-06-25 01:58 | PTCARENOTE ---
Pt received start of shift, HR SR w/ PACs. R radial band off 2215. dressing CDI, surrounding site soft - no hematoma. R groin site soft, no hematoma. Pt c/o productive cough and acid reflux. TT MANAGER TRADING Hephziba - robitussin and Tums ordered and
administered. While pt asleep w/ 15L non-rebreather mask, pt desat to 87-90% O2. TT MANAGER TRADING Hephziba and RT. Midflow cannula decided as best option, if pt desats again while sleeping - pt willing to try cpap. Pt continues to deny any CP/abd pain since
cardiac cath. Informed to notify RN if any changes, call llanos within reach.
--- NOTE | 2024-06-25 04:14 | W.PN.UPDATE ---
Update Note
Progress Note Update
RN notified SLEEVE IRONER, patient Oxygen saturation is 88-90% on 15L NRM, RR 20. Patient denies any chest pain or shortness of breath. RT evaluated patient, placed on Midflow and sat is 96% on midflow.
[2024-06-25 06:53] LABS: % Basophils 0.2 % (0-2); % Eosinophils 0.1 % (0-6); % Immature Granulocytes 0.8 % (0-0.5); % Lymphocytes 11.4 % (20.5-51.1); % Monocytes 8.3 % (1.7-9.3); % Neutrophils 79.2 % (42.2-75.2); Absolute Immature Granulocytes 0.1 10^3/uL (0-0.05); Absolute Lymphocytes 1.8 10^3/uL (1.2-3.4); Absolute Monocytes 1.3 10^3/uL (0.1-0.6); Absolute Neutrophils 12.6 10^3/uL (1.4-6.5); Hematocrit 35.6 % (39.0-52.0); Hemoglobin 12.2 g/dL (13.0-18.0); Mean Corp Hgb Conc. 34.3 g/dL (33.0-37.0); Mean Corpuscular Hgb 29.3 pg (27.0-31.0); Mean Corpuscular Volume 85.6 fL (80.0-94.0); Mean Platelet Volume 10.8 fL (7.4-10.4); Nucleated Red Blood Cells % 0 % (-); Platelet Count 355 10^3/uL (130-400); Red Blood Cell Count 4.16 10^6/uL (4.70-6.10); Red Cell Dist. Width 14.3 % (11.5-14.5); White Blood Cell Count 15.9 10^3/uL (4.8-10.8)
--- NOTE | 2024-06-25 06:53 | W.PN.HOSP.TC ---
Today's Communication/Plan
-
-OK/ CHF, c/w Lasix, anti-plt therapy, add GDMT as BP & renal function tolerates
-Suspect CKD, check urinalysis
- PNA< c/w current regimen, wean down O2, suspect also Lasix will help. Need Sleep study, suspect CHRISSIE
-Metabolic syndrome, Fasting BS 127, await HGB A1C. Can add SGLT2
-Incidental left adrenal nodule: OP follow up
- replace K
Will follow
Appreciate nursing, cardiology and pulmonary help
Assessment / Plan
Assessment / Plan
Physical Exam
General: No Apparent Distress
HEENT: Normocephalic, Moist mucous membranes and Atraumatic. Nasal O2
Respiratory: Clear, mild basal rales, no wheezes
Cardiac: S1/S2, Regular Rhythm and Peripheral Edema; No Murmur or Rub
GI: Soft, Non Tender, Non Distended and Normal Bowel Sounds; No Organomegaly
Rectal: No bleeding
Musculoskeletal: No Clubbing, No Cyanosis and No Edema
Skin: No Rash
Neuro: Nonfocal/grossly intact
Psych: no agitation
# STEMI ,anterior wall myocardial infarction, s/p successful angioplasty of LAD
No chest pain over night
On Dual anti-platelet therapy ( per chair upholsterer: Uninterrupted dual antiplatelet therapy for at least 1 year), high intensity statin therapy
- s/p heparin drip & Nitroglycerin drip
- Appreciate cardiology help
# Hyperlipidemia
LDL 202
Total cholesterol 260
Started on high intensity statin with Lipitor 80 mg QD
# Acute new onset systolic heart failure
Echo: LVEF 30-35%, mild to moderate mitral regurgitation, aortic sclerosis without stenosis.
-Cardiac BNP of 3300 on admission
-Chest x-ray showed signs of CHF
- c/w Lasix therapy, subsequent GDMT as BP and kidney function tolerate.
# Acute hypoxic respiratory failure
He reported that he started to feel ill with chest congestion, fever, cough then progressed to chest pain
Hx of snoring, possible underling CHRISSIE< will need sleep study
I think heart attack triggered by a respiratory infection
c/w to treat both CHF & PNA
I cut down on O2 to 6-7 liters and SaO2 seems to hold well
Consult pulmonary
# Left upper lobe pneumonia, community acquired
-Leukocytosis on presentation, no fevers
- sputum culture
-Ceftriaxone/azithromycin
-Mucinex
- Negative COVID
# Abdominal discomfort/loose stools
Resolved
CT a A/P no acute issues. Incidental left adrenal nodule, will need OP work up.
# Suspect underlying Chronic kidney disease stage II to IIIA
We do not have a recent baseline renal function
Monitor renal function while receiving diuretic therapy and had contrast
No hydronephrosis on CT
- No hematuria. No flank pain
- Check urinalysis
#Essential hypertension
will start new meds to help with known CAD including BB
#History of prediabetes/ metabolic syndrome
HGB A1 C is pending
# Obesity BMI around 35
# Hypokalemia, replace
Full code
DVT prophylaxis, SQ Lovenox.
Cardiac diet
Total time spent to see the patient, examine the patient on the floor, review data and lab results, discuss treatment plan with patient, nursing staff around 55 minutes
Anticipated Discharge: 24 - 48 hours
Subjective/Interval History
-
Date of Service: June 25, 2024
No chest pain
No sob, feels better
Objective Data
-
Labs:
Laboratory Results
06/24/24 06/25/24
21:30 06:38
WBC 15.9 H
Hgb 12.2 L
Hct 35.6 L
Plt Count 355
APTT Cancelled
Sodium Pending
Potassium Pending
Chloride Pending
Carbon Dioxide Pending
BUN Pending
Creatinine Pending
Glucose Pending
Calcium Pending
Total Bilirubin Pending
AST Pending
ALT Pending
Alkaline Phosphatase Pending
Vital Signs:
Vital Signs
Temp Pulse Resp BP Pulse Ox
98.3 F 80 20 135/74 96
06/25/24 01:43 06/25/24 04:15 06/25/24 01:43 06/25/24 01:43 06/25/24 04:15
I&O
06/23/24 06/24/24 06/25/24
06:59 06:59 06:59
Intake Total 480 / 480
Output Total 2074 / 2074
Balance -1595 / -1595
[2024-06-25 07:12] LABS: ALT (SGPT) 50 U/L (0-50); AST (SGOT) 49 U/L (17-59); Albumin 3.5 g/dl (3.5-5.0); Alkaline Phosphatase 48 U/L (38-126); Blood Urea Nitrogen 36 mg/dl (9-20); Calcium 8.7 mg/dl (8.4-10.2); Carbon Dioxide 26 mmol/L (22-30); Chloride 106 mmol/L (98-107); Estimated Creatinine Clearance 69 ml/min; Glucose 127 mg/dl (70-99); Potassium 3.4 mmol/L (3.5-5.1); Sodium 145 mmol/L (135-145); Total Bilirubin 1.1 mg/dl (0.2-1.3); Total Protein 6.4 g/dl (6.3-8.2); eGFR 48.41
[2024-06-25] MEDS: BRILINTA 90 MG PO ×2 (08:30→20:20)
[2024-06-25] MEDS: PROTONIX 40 MG PO (08:30)
[2024-06-25] MEDS: DIOVAN 40 MG PO (08:31)
[2024-06-25] MEDS: LOW STRENGTH ASPIRIN 81 MG PO (08:31)
[2024-06-25] MEDS: LASIX 80 MG IV ×2 (08:33→16:34)
[2024-06-25] MEDS: APRESOLINE PO (09:10)
[2024-06-25] MEDS: KCL 20 MEQ PO (09:13)
--- NOTE | 2024-06-25 11:34 | CON.PUL ---
Consultation
Consultation Request
Date/Time Consultation Requested: 06/25/24
Date/Time Consultation Performed: 06/25/24
Performing Provider: Bang
Reason for Consultation: PNA
Medical History
-
History of Present Illness:
Patient is a 63-year-old male with previous history of hypertension, prediabetes, presenting to ER with abdominal pain, decreased appetite nausea loose stools x 1 week. Began developing productive cough, shortness of breath, chills. In ER noted
to have EKG changes with ST segment changes and elevated troponin, ruled in for acute ACS. Underwent left heart catheterization on 06/24/2024 with occlusion of LAD status post stent. Notably he had persistent hypoxemia with possible upper
respiratory infection given symptoms. He is being treated for concurrent pneumonia. He is also placed on 6 to 7 L nasal cannula. He has no prior known history of lung disease. Nonsmoker.
.
Past Medical History
Past Medical History: Other (see list below)
Social History
Tobacco: Non-smoker
Alcohol: None
Drug: None
Family History
Family History: Reviewed & Not Pertinent
Allergies / Home Medications
Allergies
Allergy/AdvReac Type Severity Reaction Status Date / Time
No Known Allergies Allergy Unverified 06/24/24 11:18
Home Medications
�Medication �Instructions �Recorded �Confirmed �Last Taken �Type
amlodipine 10 mg tablet 10 mg PO DAILY 06/24/24 06/24/24 06/24/24 08:00 History
Review of Systems
-
History Source: Patient
All other systems: Negative unless noted
Vitals / Labs / Diagnostic Testing
Vital Signs
Temp Pulse Resp BP Pulse Ox
98.9 F 83 24 128/88 96
06/25/24 07:30 06/25/24 08:15 06/25/24 08:22 06/25/24 08:15 06/25/24 11:17
Lab Data
06/25/24 06:38
06/25/24 06:38
Laboratory Results
06/24/24 06/24/24
14:52 21:30
APTT 36.7 H Cancelled
Diagnostic Testing:
Physical Exam
-
HEENT: Normocephalic, Anicteric and Moist Mucous Membranes
Cardiovascular: S1/S2 and Regular Rhythm
Respiratory: Rales (minimal) and Non-Labored Respirations
GI: Soft, Non Distended and Non Tender
Neurology: Awake, Alert, Oriented and No Motor Deficits
Skin: Warm, Dry and Good Color
General: Comfortable and Other (NAD)
Assessment
-
Patient is a 63-year-old male with previous history of hypertension, prediabetes, presenting to ER with abdominal pain, decreased appetite nausea loose stools x 1 week. Began developing productive cough, shortness of breath, chills. In ER noted
to have EKG changes with ST segment changes and elevated troponin, ruled in for acute ACS. Underwent left heart catheterization on 06/24/2024 with occlusion of LAD status post stent. Notably he had persistent hypoxemia with possible upper
respiratory infection given symptoms. He is being treated for concurrent pneumonia. He is also placed on 6 to 7 L nasal cannula. He has no prior known history of lung disease. Nonsmoker.
Acute hypoxic respiratory failure
Acute STEMI w/ elevated troponins, EKG changes s/p LHC with LAD dz s/p stent 06/24/24
Acute systolic heart failure, EF 30-35%
Mild to moderate mitral regurgitation
Possible community acquired pneumonia
Leukocytosis
GRAY, creatinine 1.6 (BL 0.9-1.3)
Hypokalemia
Conditions present prior to admission
Hyperlipidemia
Essential hypertension
History of prediabetes/metabolic syndrome
Obesity BMI 35
Plan
Hypoxemia noted on arrival, supplemental o2 added
No oxygen use history at home prior to admission
Home O2 evaluation eventually
He feels his SOB is already improving
Prior history of lung disease is not noted--
Lifelong nonsmoker, no family history
Suspect CHRISSIE, but never had a sleep study
PNA may be present, given presenting symptoms, r/o superimposed infection
Sputum culture is pending
Check procal
CXR/CT obtained indicating possible edema vs PNA, patchy b/l opacities
Can obtain CT chest for clarity but patient is already improving
If procal and sputum are negative, can stop abx
If not conclusive, would be reasonable to complete 5 days of treatment
Cardiac history reviewed, events noted
ECHO results are reviewed indicating CHF
We discussed the importance of adherence to therapy
Cards following for further management
Weight loss measures recommended
Will need outpatient pulmonary evaluation in our office for PFTs and 6MWT
Reviewed with patient
Risk factors assessed for underlying sleep disordered breathing also noted, recommend outpatient PSG/sleep evaluation
Discussed this with patient and at bedside
We will follow
Diagnostic Data
Chest X-Ray: 06/24/24- Moderate to severe CHF. Suspect superimposed left upper lobe pneumonia. Cannot rule out component of underlying chronic interstitial lung disease.
CT Scan: AP 06/24/24- 1. No significant acute abnormality identified in the abdomen or pelvis, as described above.
2. A 2.1 cm left adrenal nodule likely reflects an adenoma, although indeterminate on this exam. Recommend outpatient workup with dedicated adrenal mass protocol CT abdomen without and with contrast for confirmation.
3. Small bilateral pleural effusions with probable air trapping bilaterally. Infectious/inflammatory pneumonitis not excluded.
Echo: Normal left ventricular chamber size. Moderately reduced left ventricular systolic function. Left ventricular ejection fraction is 30-35% by Reza's method. Anterior wall and anteroseptum are severely hypo- to akinetic from mid portion
through apex consistent with LAD territory regional wall motion abnormality. Mild concentric left ventricular hypertrophy. Normal right ventricular size. Normal right ventricular systolic function. Mild to moderate mitral regurgitation. Aortic
sclerosis without stenosis. The IVC is dilated and does not collapse consistent with severely elevated right atrial pressure.
No prior study for comparison
[facility] 10/5/24- CONCLUSIONS
1. Late presentation of anterior wall myocardial infarction complicated by heart failure and respiratory insufficiency.
2. Successful stenting of the proximal LAD with a 3.0 x 22 mm [place] stent that was implanted at nominal pressures and postdilated in its proximal midportion with a 3.5 mm noncompliant balloon to 20 dawood
PFT's:
Reports and relevant images were personally reviewed.
Total time spent on this consultation __76__ includes review of history, physical exam, medications, laboratory data, personal review of imaging, extensive review of outpatient records, discussion with care team and respiratory therapy.
[2024-06-25] MEDS: ROCEPHIN 1000 MG IV (12:26)
[2024-06-25] MEDS: COREG 3.125 MG PO ×2 (12:26→20:20)
[2024-06-25] MEDS: ZITHROMAX INFUSION 250 IV (12:27)
--- NOTE | 2024-06-25 12:31 | W.PN.CARDCBS ---
Today's Communication / Plan
-
Continue IV Lasix twice daily
Wean oxygen as able
Start ARB for afterload reduction
Add beta-timbo
Wean nitro drip
Impression / Plan
-
Community Service Officer: None prior to admission, initially seen by Dontrell
Assessment:
Acute HFrEF
Late presentation of anterior STEMI s/p pLAD BO (06/24/24)
Hypoxic resp failure
Pulm edema
HTN
HLD
Plan:
-Presents with abd discomfort, dyspnea and cough found to be in acute decompensated HF
-ECG with anterior infarct, recent
-Troponin elevated 4.0 -> 3.5
-TTE with reduced LVEF 30-35% with LAD territory wall motion abnormality
-Given presentation of high risk NSTEMI/ late presentation of STEMI he underwent LHC 06/24/24 and pLAD PCI was performed
#HFrEF
-Cont IV lasix BID for acute HF
-Wean O2 as able
-ARB for afterload reduction with possible transition to Entresto
-Start BB today now that he is more compensated
-Consider aldactone and SGLT2 as renal function and BP tolerate
-Repeat TTE as an outpatient to reassess LV function in 3 months
#NSTEMI/late presentation of STEMI
-CP free
-Cont ASA/Brilinta x1yr
-New to high intensity statin, goal LDL at least <70
-Start BB today
-Discussed cardiac rehab
Discussed with nursing staff
Progress Note - Community Service Officer
Subjective
Date of Service: June 25, 2024
No acute overnight events. Patient remains in the IVU. Not reporting any chest discomfort. Tells me that his breathing is improved today.
Objective
Labs:
06/25/24 06:38
06/25/24 06:38
Labs
Hgb 12.2 g/dL (13.0-18.0) L 06/25/24 06:38
Hct 35.6 % (39.0-52.0) L 06/25/24 06:38
Plt Count 355 10^3/uL (130-400) 06/25/24 06:38
APTT Cancelled 06/24/24 21:30
Sodium 145 mmol/L (135-145) 06/25/24 06:38
Potassium 3.4 mmol/L (3.5-5.1) L 06/25/24 06:38
BUN 36 mg/dl (9-20) H 06/25/24 06:38
Creatinine 1.6 mg/dL (0.7-1.3) H 06/25/24 06:38
Glucose 127 mg/dl (70-99) H 06/25/24 06:38
Troponins
06/24/24 06/24/24 06/24/24
12:28 14:52 19:47
Troponin I 4.030 H* 3.540 H* 4.380 H*
06/24/24 06/24/24 06/25/24
21:00 23:20 01:03
Troponin I Cancelled Cancelled 5.110 H*
06/25/24 06/25/24
05:20 06:38
Troponin I Cancelled 4.910 H*
Vital Signs and I&O:
Vital Signs
Temp Pulse Resp BP Pulse Ox
99.3 F 81 20 115/79 98
06/25/24 11:42 06/25/24 11:47 06/25/24 11:42 06/25/24 11:47 06/25/24 11:42
Vital Signs
Temp Pulse Resp BP Pulse Ox
99.3 F 81 20 115/79 98
06/25/24 11:42 06/25/24 11:47 06/25/24 11:42 06/25/24 11:47 06/25/24 11:42
Intake & Output
06/23/24 06/24/24 06/25/24 06/26/24
06:59 06:59 06:59 06:59
Intake Total 480 / 480 180 / 180
Output Total 2074 900 / 900
Balance -1595 / -1595 -720 / -720
Physical Exam
Physical Exam
Gen: NAD, AAOx3
HEENT: NC/AT, sclera anicteric
Neck: Difficult to assess JVD
CV: RRR, NL s1/s2
Lungs: Crackles at the base b/l on mid flow O2
Abd: S/ND
Ext: No LE edema, warm and well perfused
Skin: Warm, dry
Neuro: Non-focal
[2024-06-25 12:58] LABS: Glycohemoglobin (HgbA1c) 5.7 % (4.0-5.6)
[2024-06-25 14:22] LABS: Urine Albumin Negative (Neg - Trace); Urine Bilirubin Negative (Negative); Urine Character Clear (Clear); Urine Color Yellow; Urine Glucose Negative (Negative); Urine Ketone Negative (Negative); Urine Leukocyte Negative (Negative); Urine Nitrite Negative (Negative); Urine Occult Blood Trace (Negative); Urine Specific Gravity 1.015 (<1.030); Urine Urobilinogen Negative (Neg - 1+)
[2024-06-25 14:30] LABS: Urine Bacteria Few (Negative); Urine White Cell None Seen /HPF (0-5)
[2024-06-25 14:58] LABS: Procalcitonin < 0.05 ng/ml (0.0-0.25)
[2024-06-25] MEDS: LIPITOR 80 MG PO (17:39)
[2024-06-25] MEDS: LOVENOX 40 MG SC (17:39)
--- NOTE | 2024-06-25 18:09 | PTCARENOTE ---
Pt oob to chair today. Resp rate 20-32, midflow oxygen changed to nasal cannula, 97% on 4L. Pt denies feeling short of breath although he appears so. Nitroglycerin infusion tapered off by 10:30, pt started on coreg. He reported two episodes of
feeling lightheaded when standing, lowest BP 99/66, notified. Telemetry shows sinus rhythm @80's, no ectopy. Pt willingly learning about CHF guidelines and CAD.
[2024-06-26] VITALS (8 sets, daily range): BP systolic 101–130; BP diastolic 57–91; BMI 35.0
--- NOTE | 2024-06-26 02:41 | PTCARENOTE ---
Pt received start of shift, HR SR w/ PACs. OOB in chair with family at bedside. 95-97% 4L NC. Reinforced CAD/HF teaching. Pt states open to trying CPAP another night, but would prefer the midflow cannula overnight. Pt continues to deny any CP or
SOB.
[2024-06-26 05:30] LABS: Hematocrit 34.9 % (39.0-52.0); Hemoglobin 11.9 g/dL (13.0-18.0); Mean Corp Hgb Conc. 34.1 g/dL (33.0-37.0); Mean Corpuscular Hgb 30.4 pg (27.0-31.0); Mean Corpuscular Volume 89.3 fL (80.0-94.0); Mean Platelet Volume 11.3 fL (7.4-10.4); Platelet Count 307 10^3/uL (130-400); Red Blood Cell Count 3.91 10^6/uL (4.70-6.10); Red Cell Dist. Width 14.5 % (11.5-14.5); White Blood Cell Count 13.6 10^3/uL (4.8-10.8)
[2024-06-26 05:58] LABS: Blood Urea Nitrogen 44 mg/dl (9-20); Calcium 8.3 mg/dl (8.4-10.2); Carbon Dioxide 26 mmol/L (22-30); Chloride 103 mmol/L (98-107); Estimated Creatinine Clearance 61 ml/min; Glucose 103 mg/dl (70-99); Potassium 3.6 mmol/L (3.5-5.1); Sodium 144 mmol/L (135-145); eGFR 42.03
--- NOTE | 2024-06-26 09:01 | W.PN.CARDCBS ---
Addendum entered and electronically signed by Rosmery Leal DO 06/26/24 18:03:
I saw and examined the patient.
The Mgmt Analyst's note was reviewed and I agree with the note.
Comment: Patient was seen and examined. Brother at bedside. No chest pain or pressure/indigestion but continues to have shortness of breath.
General: No acute distress, AAOX3
Neck: + JVD
Heart: Regular, positive S1/S2, 2/6 SM
Lungs: Bronchovesicular breath sounds with fine bibasilar Crackles right greater than left
Abd: Positive BS, NT/ND, neg rebound/rigidity/guarding
Ext: + edema. Right radial site ok
Neuro: nonfocal
Plan:
ACS with NSTEMI/late presentation of STEMI. ECG with anterior infarct, recent. Troponin peaked 5.11.
-TTE 06/24/24 with reduced LVEF 30-35% with LAD territory wall motion abnormality
-LHC 06/24/24 and was found to have occlusion of proximal LAD with right to left collaterals status post proximal LAD 3.0 x 22 mm Jamarcus BO LAD
-Continue Uninterrupted aspirin and Brilinta for 1 year.
-Monitor telemetry
-Continue new Coreg 3.125mg BID
-Prestatin lipids TC 260, HDL 33, LDL 202, triglycerides 128. Started on atorvastatin 80 mg daily. Goal LDL less than 55 mg/dL
- Hemoglobin A1c 5.7%. Dietary/ medical therapy reviewed.Goal normoglycemia
-Will start SGLT2 inhibitor once renal function improves
-cardiac rehab
#Ischemic cardiomyopathy with decompensated heart failure
-proBNP 3300 on presentation
-Remains volume overloaded�continue IV Lasix
-Goal-directed medical therapy limited by acute renal insufficiency after IV dye exposure (CT scan and LHC)
-Continue carvedilol and valsartan. If able would transition valsartan to Entresto, possibly as an outpatient.
-Discontinued outpatient amlodipine
-Once renal function stabilizes/improves would start SGLT2 inhibitor
-Wean O2 as able
-CHF education
-Repeat echocardiogram in 3 months on optimal goal-directed medical therapy to reassess ejection fraction. If ejection fraction remains under 35% could consider ICD therapy
Acute renal insufficiency
-Initial creatinine 1.5, bumped to 1.6, currently 1.8 06/26/2024.
-Had dye exposure with cardiac catheterization as well as CT scan
-Monitor renal function closely
Initially being treated for possible pneumonia.
- Pro-Chalino negative. Patient notes improved cough.
-Appreciate pulmonary input. Antibiotics discontinued
-Advised outpatient evaluation for obstructive sleep apnea.
Will follow with
Original Note:
Today's Communication / Plan
-
Hold afternoon Lasix given elevated creat
Hold Valsartan given elevated creat
Continue ASA, Brilinta, Coreg, Atorvastatin
Wean oxygen as tolerated
Monitor renal function and electrolytes closely; repeat BMP in AM
Impression / Plan
-
Telephone Surveyor: None prior to admission, initially seen by Dontrell
Assessment:
Presented
Acute HFrEF
Hypoxic resp failure
Pulm edema
Late presentation of anterior STEMI
s/p pLAD BO (06/24/24)
Ischemic cardiomyopathy, EF 30-35% (new diagnosis)
HTN
HLD
Echo 06/24/2024: EF 30 to 35% with moderately reduced LV systolic function. Anterior wall and anterior septum are severely hypokinetic/akinetic from midportion through apex. Mild concentric LVH. Mild to moderate MR.
Cardiac catheterization 06/24/2024: LM: NL. LAD: 100% proximal occlusion with right to left collaterals, s/p 3.0 x 22 mm Jamarcus BO, L circumflex: LI. RCA patent. No LVG.
Plan:
-Presented 06/24/24 with abd discomfort, dyspnea and cough found to be in acute decompensated HF
-NSTEMI/late presentation of STEMI. ECG with anterior infarct, recent. Troponin peaked 5.11.
-TTE 06/24/24 with reduced LVEF 30-35% with LAD territory wall motion abnormality
-Late presentation of STEMI he underwent LHC 06/24/24 and was found to have occlusion of proximal LAD with right to left collaterals. Now status post proximal LAD 3.0 x 22 mm [place] BO LAD
-Continue aspirin and Brilinta for 1 year uninterrupted. Per case management patient eligible for co-pay card for Brilinta at discharge.
-CP free
-Continue beta-timbo, ARB and statin
-Prestatin lipids TC 260, HDL 33, LDL 202, triglycerides 128. Hemoglobin A1c 5.7%. New to high intensity atorvastatin 80 mg
-Discussed cardiac rehab
#HFrEF
-proBNP 3300 on presentation
-Currently undergoing diuresis with IV Lasix
-Weight down at least 6 pounds since admission.
-Initial creatinine 1.5, bumped to 1.6, currently 1.8 06/26/2024. Maybe secondary to contrast from catheterization and IV diuresis. Would hold afternoon Lasix. Repeat creatinine in a.m.
-Still on 2 L oxygen via nasal cannula, wean O2 as able
-Continue carvedilol, new this admission.
-ARB for afterload reduction with possible transition to Entresto if blood pressure and renal function allow within next 24 to 48 hours
-Consider aldactone and SGLT2 as renal function and BP tolerate
-Repeat TTE as an outpatient to reassess LV function in 40 days given revascularization
-Heart failure education provided
Initially being treated for possible pneumonia. Pro-Chalino negative. Patient notes improved cough. Consider discontinuation of antibiotics.
Patient was also noted to have nocturnal desaturation during sleep. Consider outpatient evaluation for obstructive sleep apnea. Pulmonary following.
Discussed with nursing staff, patient and Jennyfer at bedside
History of Present Illness 06/24/2024:
63M PMHx hypertension who presents for evaluation of abdominal discomfort, dyspnea and cough
Patient reports that he felt unwell approximately 5 days ago, had some epigastric discomfort which was approx 5 out of 10 in intensity as well diarrhea
Approx 2 days prior to admission he developed dyspnea, cough and chest pressure. Tells me chest pressure was approx 2 out of 10 in intensity earlier today but at the time of my evaluation in the emergency department reported that he was feeling
back to baseline.
In the [facility] was hypertensive and hypoxic requiring supplemental O2. Identified as having diffuse infiltrates on CXR c/w pulm edema. ProBNP >3k. Troponin intially 4.0. ECG concerning for recent anterior STEMI.
Some of the history provided by his and daughter who are at bedside
Progress Note - Telephone Surveyor
Subjective
Date of Service: June 26, 2024
Patient seen and examined. at bedside. Patient reports he is feeling well and denies chest pain. Has resolved shortness of breath and abd bloating. Still mild dry cough.
Objective
Labs:
06/26/24 05:03
06/26/24 05:03
Labs
Hgb 11.9 g/dL (13.0-18.0) L 06/26/24 05:03
Hct 34.9 % (39.0-52.0) L 06/26/24 05:03
Plt Count 307 10^3/uL (130-400) 06/26/24 05:03
APTT Cancelled 06/24/24 21:30
Sodium 144 mmol/L (135-145) 06/26/24 05:03
Potassium 3.6 mmol/L (3.5-5.1) 06/26/24 05:03
BUN 44 mg/dl (9-20) H 06/26/24 05:03
Creatinine 1.8 mg/dL (0.7-1.3) H 06/26/24 05:03
Glucose 103 mg/dl (70-99) H 06/26/24 05:03
Troponins
06/24/24 06/24/24 06/24/24
12:28 14:52 19:47
Troponin I 4.030 H* 3.540 H* 4.380 H*
06/24/24 06/24/24 06/25/24
21:00 23:20 01:03
Troponin I Cancelled Cancelled 5.110 H*
06/25/24 06/25/24
05:20 06:38
Troponin I Cancelled 4.910 H*
Vital Signs and I&O:
Vital Signs
Temp Pulse Resp BP Pulse Ox
97.7 F 69 22 118/90 96
06/26/24 08:27 06/26/24 05:00 06/26/24 08:27 06/26/24 04:45 06/26/24 08:27
Vital Signs
Temp Pulse Resp BP Pulse Ox
97.7 F 69 22 118/90 96
06/26/24 08:27 06/26/24 05:00 06/26/24 08:27 06/26/24 04:45 06/26/24 08:27
Intake & Output
06/24/24 06/25/24 06/26/24 06/27/24
06:59 06:59 06:59 06:59
Intake Total 480 / 480 670 / 670
Output Total 2074 / 2074 2200 / 2200 950 / 950
Balance -1595 / -1595 -1530 / -1530 -950 / -950
Physical Exam
Physical Exam
GEN: No distress, awake, Ox3, sitting up in bed
HEENT: supple, anicteric, mmm
LUNGS: CTA, no wheezes/rales; wearing oxygen 2 L via nasal cannula
CV: Reg, S1/S2, no murmur, rub or gallop
ABD: soft, BS+, NT/ND
EXT: No edema, clubbing or cyanosis
NEURO: Gross non-focal
SKIN: No rash, warm, dry, pink
[2024-06-26] MEDS: LOW STRENGTH ASPIRIN 81 MG PO (09:02)
[2024-06-26] MEDS: PROTONIX 40 MG PO (09:03)
[2024-06-26] MEDS: DIOVAN 40 MG PO (09:03)
[2024-06-26] MEDS: LASIX 80 MG IV (09:03)
[2024-06-26] MEDS: BRILINTA 90 MG PO ×2 (09:03→20:54)
[2024-06-26] MEDS: COREG 3.125 MG PO ×2 (09:03→20:54)
--- NOTE | 2024-06-26 09:45 | W.PN.PUL.V3 ---
Today's Communication / Plan
-
Wean oxygen
Diuresis as tolerated
Trend troponin
Procalcitonin negative-consider discontinuation of antibiotics
Outpatient pulmonary/sleep disorders follow-up
Assessment
-
Patient is a 63-year-old male with previous history of hypertension, prediabetes, presenting to ER with abdominal pain, decreased appetite nausea loose stools x 1 week. Began developing productive cough, shortness of breath, chills. In ER noted
to have EKG changes with ST segment changes and elevated troponin, ruled in for acute ACS. Underwent left heart catheterization on 06/24/2024 with occlusion of LAD status post stent. Notably he had persistent hypoxemia with possible upper
respiratory infection given symptoms. He is being treated for concurrent pneumonia. He is also placed on 6 to 7 L nasal cannula. He has no prior known history of lung disease. Nonsmoker.
Acute hypoxic respiratory failure
Acute STEMI w/ elevated troponins, EKG changes s/p LHC with LAD dz s/p stent 06/24/24
Acute systolic heart failure, EF 30-35%
Mild to moderate mitral regurgitation
Possible community acquired pneumonia
Leukocytosis
GRAY, creatinine 1.6 (BL 0.9-1.3)
Hypokalemia
Conditions present prior to admission
Hyperlipidemia
Essential hypertension
History of prediabetes/metabolic syndrome
Obesity BMI 35
Plan
Respiratory status improving
Continue supplemental oxygen-attempt to wean to room air
Eventually assess discharge supplemental oxygen needs
Nebulizers if needed-currently not bronchospastic
Aspiration precautions
Prior history of lung disease is not noted
Lifelong nonsmoker, no family history
Suspect CHRISSIE, but never had a sleep study
Sputum culture pending
Follow leukocytosis
Procalcitonin negative-consider stopping antibiotics
Diuresis as tolerated
Monitor renal function, electrolytes, intake/output, lower extremity edema and weight
Replace electrolytes as needed
Cardiology following-correspondence reviewed
Weight loss recommended
Will need outpatient pulmonary evaluation in our office for PFTs and 6MWT
Risk factors assessed for underlying sleep disordered breathing also noted, recommend outpatient PSG/sleep evaluation
Reviewed with nursing and family member at bedside
Diagnostic Data
Chest X-Ray: 06/24/24- Moderate to severe CHF. Suspect superimposed left upper lobe pneumonia. Cannot rule out component of underlying chronic interstitial lung disease.
CT Scan: AP 06/24/24- 1. No significant acute abnormality identified in the abdomen or pelvis, as described above.
2. A 2.1 cm left adrenal nodule likely reflects an adenoma, although indeterminate on this exam. Recommend outpatient workup with dedicated adrenal mass protocol CT abdomen without and with contrast for confirmation.
3. Small bilateral pleural effusions with probable air trapping bilaterally. Infectious/inflammatory pneumonitis not excluded.
Echo: Normal left ventricular chamber size. Moderately reduced left ventricular systolic function. Left ventricular ejection fraction is 30-35% by Reza's method. Anterior wall and anteroseptum are severely hypo- to akinetic from mid portion
through apex consistent with LAD territory regional wall motion abnormality. Mild concentric left ventricular hypertrophy. Normal right ventricular size. Normal right ventricular systolic function. Mild to moderate mitral regurgitation. Aortic
sclerosis without stenosis. The IVC is dilated and does not collapse consistent with severely elevated right atrial pressure.
No prior study for comparison
[facility] 06/24/24- CONCLUSIONS
1. Late presentation of anterior wall myocardial infarction complicated by heart failure and respiratory insufficiency.
2. Successful stenting of the proximal LAD with a 3.0 x 22 mm Jamarcus stent that was implanted at nominal pressures and postdilated in its proximal midportion with a 3.5 mm noncompliant balloon to 20 dawood
Subjective Data
-
Date of Service:
Date of Service: June 26, 2024
Chief Complaint: Pulmonary Follow Up and Dyspnea Follow Up
Subjective:
No complaints of worsening shortness of breath, chest congestion, productive cough, chest pain, or abdominal pain
Review of Systems
General: Other (Per HPI)
Objective Data
Data Reviewed
Vital Signs / I&O:
Vital Signs
Temp Pulse Resp BP Pulse Ox
97.7 F 69 22 118/90 96
06/26/24 08:27 06/26/24 05:00 06/26/24 08:27 06/26/24 04:45 06/26/24 08:27
Intake and Output
06/25/24 06/26/24 06/27/24
06:59 06:59 06:59
Intake Total 480 / 480 670 / 670
Output Total 2075 / 2075 2200 / 2200 950 / 950
Balance -1595 / -1595 -1530 / -1530 -950 / -950
SaO2: 96
Nasal Cannula flow liters per minute: 4
Physical Exam
General: Respiratory Distress (n) and Comfortable
HEENT: Normocephalic, Anicteric, Moist Mucous Membranes and Other (Thick neck)
Cardiovascular: Regular Rhythm
Respiratory: Wheeze (Forced expiratory), Crackles (Rare basilar), Rhonchi (n), Non-Labored Respirations, Accessory Resp Muscle Use (n) and Stridor (n)
GI: Soft, Non Distended and Non Tender
Neurology: Awake, Alert and No Motor Deficits
Skin: Warm, Good Color, Cyanosis (n), Jaundice (n) and Rash (n)
Labs/Micro/Reports
Lab Data
06/26/24 05:03
06/26/24 05:03
Microbiology
06/24/24 15:02 Sputum Respiratory Culture - Final
06/24/24 15:02 Sputum Gram Stain - Final
--- NOTE | 2024-06-26 10:16 | CM ---
Pricing on Brilinta through the patient's [facility] [employer] [facility], ID# [id number], is $86.16 for a 30 day supply. Patient has commercial insurance, so he qualifies for the $5 copay card. It is in stock at the patient's [facility].
Pricing on Entresto is $82.99 for a 30 day supply. Patient qualifies for the $10 copay card.
I will place both in the patient's red discharge folder.
--- NOTE | 2024-06-26 10:25 | PTCARENOTE ---
assumed care of pt from previous shift RN, sinus rhythm on tele, VSS. Lungs w fine crackles to bilateral bases, pox 97-98% on 4L NC, weaned to 2L NC, coughing and deep breathing encouraged. Incentive spirometer reviewed w the pt and pt was able to
demonstrate appropriate use. +bs, tolerating PO intake, voids spontaneously, PIV flushes easily. pt denies pain or SOB. plan of care reviewed w the pt and questions encouraged.
[2024-06-26] MEDS: ROCEPHIN IV (13:03)
[2024-06-26] MEDS: ZITHROMAX INFUSION IV (13:04)
--- NOTE | 2024-06-26 13:12 | W.PN.HOSP.TC ---
Today's Communication/Plan
-
hold further lasix /ARB
Trend cr
monitor UOP
Wean o2 as tolerated
monitor off abx
cont anti-platelet agents
Assessment / Plan
Assessment / Plan
Physical Exam
General: No Apparent Distress
HEENT: Normocephalic, Moist mucous membranes and Atraumatic. Nasal O2
Respiratory: Clear, mild basal rales, no wheezes
Cardiac: S1/S2, Regular Rhythm and Peripheral Edema; No Murmur or Rub
GI: Soft, Non Tender, Non Distended and Normal Bowel Sounds; No Organomegaly
Rectal: No bleeding
Musculoskeletal: No Clubbing, No Cyanosis and No Edema
Skin: No Rash
Neuro: Nonfocal/grossly intact
Psych: no agitation
# STEMI ,anterior wall myocardial infarction, s/p successful angioplasty of LAD
On Dual anti-platelet therapy ( per overlock sleeve setter: Uninterrupted dual antiplatelet therapy for at least 1 year), high intensity statin therapy
- s/p heparin drip & Nitroglycerin drip
- Appreciate cardiology help
# Hyperlipidemia
LDL 202
Total cholesterol 260
Started on high intensity statin with Lipitor 80 mg QD
# Acute new onset systolic heart failure
Echo: LVEF 30-35%, mild to moderate mitral regurgitation, aortic sclerosis without stenosis.
-Cardiac BNP of 3300 on admission
-Chest x-ray showed signs of CHF
-Hold lasix as with elevated Cr. ARB on hold
-cards recs
# Acute hypoxic respiratory failure
c/w to treat both CHF
procal negative and abx Dced.
wean o2 as tolerated
Consult pulmonary
# Left upper lobe pneumonia, community acquired likely viral
-Leukocytosis on presentation, no fevers
- sputum culture
-Procal negative. off Ceftriaxone/azithromycin
-Mucinex
-Negative COVID
# Abdominal discomfort/loose stools
Resolved
CT a A/P no acute issues. Incidental left adrenal nodule, will need OP work up.
# Acute kidney injury on suspect underlying Chronic kidney disease stage II to IIIA
We do not have a recent baseline renal function
Monitor renal function while receiving diuretic therapy and had contrast
No hydronephrosis on CT
Plan to hold further Lasix. Trend creatinine.
#Essential hypertension
Monitor blood pressure. Continue current regimen.
#History of prediabetes/ metabolic syndrome
HGB A1 C is pending
# Obesity BMI around 35
# Hypokalemia, replace
Full code
DVT prophylaxis, SQ Lovenox.
Cardiac diet
Anticipated Discharge: > 48 hours
Subjective/Interval History
-
Date of Service: June 26, 2024
remains on oxygen
denies chest pain or sob
Objective Data
-
Labs:
Laboratory Results
06/26/24
05:03
WBC 13.6 H
Hgb 11.9 L
Hct 34.9 L
Plt Count 307
Sodium 144
Potassium 3.6
Chloride 103
Carbon Dioxide 26
BUN 44 H
Creatinine 1.8 H
Glucose 103 H
Calcium 8.3 L
Vital Signs:
Vital Signs
Temp Pulse Resp BP Pulse Ox
97.5 F 65 20 103/91 96
06/26/24 11:36 06/26/24 10:00 06/26/24 11:36 06/26/24 08:58 06/26/24 11:36
I&O
06/25/24 06/26/24 06/27/24
06:59 06:59 06:59
Intake Total 480 / 480 670 / 670
Output Total 2074 / 2074 2199 / 2199 1949 / 1949
Balance -1595 / -1595 -153 / -153 / -1950
Data Reviewed
-
Total Time Spent with Patient (in minutes): 52
--- NOTE | 2024-06-26 13:36 | CM ---
Chart reviewed. Patient is independent of ADLS, lives with his in a 2 [address], 1 [address]AB[facility], 0 DME. Plan is for the patient to return home. CM to follow
[2024-06-26] MEDS: LIPITOR 80 MG PO (17:30)
[2024-06-26] MEDS: LOVENOX 40 MG SC (17:30)
[2024-06-26 19:23] LABS: Hepatitis C Antibody Negative (Negative)
--- NOTE | 2024-06-27 01:39 | PTCARENOTE ---
Pt was placed on oxygen for Pl Ox 88-90% on RA. Pt's saturation of O2 improved to 95% on 2L
[2024-06-27 03:58] VITALS: BP 119/62
[2024-06-27 04:00] VITALS: BMI 35.3
[2024-06-27 05:00] LABS: Blood Urea Nitrogen 45 mg/dl (9-20); Calcium 8.2 mg/dl (8.4-10.2); Carbon Dioxide 25 mmol/L (22-30); Chloride 103 mmol/L (98-107); Estimated Creatinine Clearance 61 ml/min; Glucose 107 mg/dl (70-99); Sodium 142 mmol/L (135-145); eGFR 42.03
[2024-06-27] MEDS: KCL 40 MEQ PO (05:21)
[2024-06-27 08:04] VITALS: BP 123/85
[2024-06-27] MEDS: BRILINTA 90 MG PO ×2 (08:27→20:16)
[2024-06-27] MEDS: LOW STRENGTH ASPIRIN 81 MG PO (08:27)
[2024-06-27] MEDS: COREG 3.125 MG PO ×2 (08:27→20:16)
[2024-06-27] MEDS: PROTONIX 40 MG PO (08:27)
--- NOTE | 2024-06-27 10:17 | W.PN.PUL.V3 ---
Today's Communication / Plan
-
Antibiotics discontinued
Diuresis
Outpatient sleep study
Assessment
-
Patient is a 63-year-old male with previous history of hypertension, prediabetes, presenting to ER with abdominal pain, decreased appetite nausea loose stools x 1 week. Began developing productive cough, shortness of breath, chills. In ER noted
to have EKG changes with ST segment changes and elevated troponin, ruled in for acute ACS. Underwent left heart catheterization on 06/24/2024 with occlusion of LAD status post stent. Notably he had persistent hypoxemia with possible upper
respiratory infection given symptoms. He is being treated for concurrent pneumonia. He is also placed on 6 to 7 L nasal cannula. He has no prior known history of lung disease. Nonsmoker.
Acute hypoxic respiratory failure
Acute STEMI w/ elevated troponins, EKG changes s/p LHC with LAD dz s/p stent 06/24/24
Acute systolic heart failure, EF 30-35%
Mild to moderate mitral regurgitation
Possible community acquired pneumonia
Leukocytosis
GRAY, creatinine 1.6 (BL 0.9-1.3)
Hypokalemia
Obstructive sleep apnea suspected-snoring, apneas, unrefreshed, daytime somnolence
Conditions present prior to admission:
Hyperlipidemia
Essential hypertension
History of prediabetes/metabolic syndrome
Obesity BMI 35
Plan
Respiratory status continues to improve
Continue supplemental oxygen-currently on room air
Nebulizers if needed-currently not bronchospastic
Aspiration precautions
Prior history of lung disease is not noted
Lifelong nonsmoker, no family history
Suspect CHRISSIE, but never had a sleep study-I have asked the office to arrange home polysomnogram as soon as possible with outpatient follow-up thereafter
Sputum culture-4 specimen
Follow leukocytosis
Procalcitonin negative--antibiotics discontinued 06/26/2024
Continue diuresis as tolerated
Monitor renal function, electrolytes, intake/output, lower extremity edema and weight
Replace electrolytes as needed
Cardiology following-correspondence reviewed
TTE 06/24/24 with reduced LVEF 30-35% with LAD territory wall motion abnormality
[facility] 06/24/24 and was found to have occlusion of proximal LAD with right to left collaterals status post proximal LAD 3.0 x 22 mm Jamarcus BO LAD
Weight loss recommended
Reviewed with daughter and at the bedside as well as nursing
Will need outpatient pulmonary evaluation in our office for PFTs and 6MWT-Home polysomnogram currently being arranged with outpatient pulmonary follow-up thereafter
Risk factors assessed for underlying sleep disordered breathing also noted, recommend outpatient PSG/sleep evaluation
Diagnostic Data
Chest X-Ray: 06/24/24- Moderate to severe CHF. Suspect superimposed left upper lobe pneumonia. Cannot rule out component of underlying chronic interstitial lung disease.
CT Scan: AP 06/24/24- 1. No significant acute abnormality identified in the abdomen or pelvis, as described above.
2. A 2.1 cm left adrenal nodule likely reflects an adenoma, although indeterminate on this exam. Recommend outpatient workup with dedicated adrenal mass protocol CT abdomen without and with contrast for confirmation.
3. Small bilateral pleural effusions with probable air trapping bilaterally. Infectious/inflammatory pneumonitis not excluded.
Echo: Normal left ventricular chamber size. Moderately reduced left ventricular systolic function. Left ventricular ejection fraction is 30-35% by Reza's method. Anterior wall and anteroseptum are severely hypo- to akinetic from mid portion
through apex consistent with LAD territory regional wall motion abnormality. Mild concentric left ventricular hypertrophy. Normal right ventricular size. Normal right ventricular systolic function. Mild to moderate mitral regurgitation. Aortic
sclerosis without stenosis. The IVC is dilated and does not collapse consistent with severely elevated right atrial pressure.
No prior study for comparison
[facility] 06/24/24- CONCLUSIONS
1. Late presentation of anterior wall myocardial infarction complicated by heart failure and respiratory insufficiency.
2. Successful stenting of the proximal LAD with a 3.0 x 22 mm Jamarcus stent that was implanted at nominal pressures and postdilated in its proximal midportion with a 3.5 mm noncompliant balloon to 20 dawood
Subjective Data
-
Date of Service:
Date of Service: June 27, 2024
Chief Complaint: Pulmonary Follow Up and Dyspnea Follow Up
Subjective:
Feels better, less short of breath, minimal cough, minimal chest congestion, no chest pain or abdominal pain
Review of Systems
General: Other (Per HPI)
Objective Data
Data Reviewed
Vital Signs / I&O:
Vital Signs
Temp Pulse Resp BP Pulse Ox
98.0 F 74 18 123/85 97
06/27/24 08:00 06/27/24 09:00 06/27/24 08:00 06/27/24 08:27 06/27/24 08:04
Intake and Output
06/26/24 06/27/24 06/28/24
06:59 06:59 06:59
Intake Total 670 / 670 240 / 240
Output Total 2200 / 2200 3500 / 3500 450 / 450
Balance -1530 / -1530 -3500 / -3500 -210 / -210
SaO2: 97
Nasal Cannula flow liters per minute: 2
Physical Exam
General: Respiratory Distress (n) and Comfortable
HEENT: Normocephalic, Anicteric, Moist Mucous Membranes and Other (Thick neck)
Cardiovascular: Regular Rhythm
Respiratory: Wheeze (Forced expiratory), Crackles (Rare basilar), Rhonchi (n), Non-Labored Respirations, Accessory Resp Muscle Use (n) and Stridor (n)
GI: Soft, Non Distended and Non Tender
Neurology: Awake, Alert and No Motor Deficits
Skin: Warm, Good Color, Cyanosis (n), Jaundice (n) and Rash (n)
Labs/Micro/Reports
Lab Data
06/26/24 05:03
06/27/24 04:07
Microbiology
06/24/24 15:02 Sputum Respiratory Culture - Final
06/24/24 15:02 Sputum Gram Stain - Final
[2024-06-27 10:59] VITALS: BP 112/78
--- NOTE | 2024-06-27 12:47 | W.PN.HOSP.TC ---
Today's Communication/Plan
-
trend bmp
cards recs
arb/lasix on hold
replete kcl
Assessment / Plan
Assessment / Plan
Physical Exam
General: No Apparent Distress
HEENT: Normocephalic, Moist mucous membranes and Atraumatic
Respiratory: Clear, mild basal rales, no wheezes
Cardiac: S1/S2, Regular Rhythm and Peripheral Edema; No Murmur or Rub
GI: Soft, Non Tender, Non Distended and Normal Bowel Sounds; No Organomegaly
Rectal: No bleeding
Musculoskeletal: No Clubbing, No Cyanosis and No Edema
Skin: No Rash
Neuro: Nonfocal/grossly intact
Psych: no agitation
# STEMI ,anterior wall myocardial infarction, s/p successful angioplasty of LAD
On Dual anti-platelet therapy ( per dialysis nurse: Uninterrupted dual antiplatelet therapy for at least 1 year), high intensity statin therapy
- s/p heparin drip & Nitroglycerin drip
- Appreciate cardiology help
# Hyperlipidemia
LDL 202
Total cholesterol 260
Started on high intensity statin with Lipitor 80 mg QD
# Acute new onset systolic heart failure
Echo: LVEF 30-35%, mild to moderate mitral regurgitation, aortic sclerosis without stenosis.
-Cardiac BNP of 3300 on admission
-Chest x-ray showed signs of CHF
-Hold lasix as with elevated Cr. ARB on hold
-cards recs
# Acute hypoxic respiratory failure
c/w to treat both CHF
procal negative and abx Dced.
wean o2 as tolerated. On room air.
Consult pulmonary
# Left upper lobe pneumonia, community acquired likely viral
-Leukocytosis on presentation, no fevers
- sputum culture
-Procal negative. off Ceftriaxone/azithromycin
-Mucinex
-Negative COVID
# Abdominal discomfort/loose stools
Resolved
CT a A/P no acute issues. Incidental left adrenal nodule, will need OP work up.
# Acute kidney injury on suspect underlying Chronic kidney disease stage II to IIIA
We do not have a recent baseline renal function
Monitor renal function while receiving diuretic therapy and had contrast
No hydronephrosis on CT
Plan to hold further Lasix. Trend creatinine.
#Essential hypertension
Monitor blood pressure. Continue current regimen.
#History of prediabetes/ metabolic syndrome/a1c 5.7
# Obesity BMI around 35
# Hypokalemia, replace
Full code
DVT prophylaxis, SQ Lovenox.
Cardiac diet
Anticipated Discharge: Within 24 hours
Subjective/Interval History
-
Date of Service: June 27, 2024
denies chest pain or sob
on room air
Objective Data
-
Labs:
Laboratory Results
06/27/24
04:07
Sodium 142
Potassium 3.0 L
Chloride 103
Carbon Dioxide 25
BUN 45 H
Creatinine 1.8 H
Glucose 107 H
Calcium 8.2 L
Vital Signs:
Vital Signs
Temp Pulse Resp BP Pulse Ox
97.7 F 68 16 112/78 99
06/27/24 10:56 06/27/24 11:00 06/27/24 10:56 06/27/24 10:59 06/27/24 10:59
I&O
06/26/24 06/27/24 06/28/24
06:59 06:59 06:59
Intake Total 670 / 670 240 / 240
Output Total 2200 / 2200 3500 / 3500 450 / 450
Balance -1530 / -1530 -3500 / -3500 -210 / -210
--- NOTE | 2024-06-27 14:14 | W.PN.CARDCBS ---
Today's Communication / Plan
-
Continue to hold Lasix and valsartan. Repeat creatinine in a.m.
Continue Coreg, aspirin, Brilinta, and atorvastatin.
He still remains somewhat volume overloaded. Ideally we will restart Lasix in a.m.
Hold on Farxiga for now with renal issues.
Eventually consider Aldactone.
Impression / Plan
-
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
Assessment:
Presented
Acute HFrEF
Hypoxic resp failure
Pulm edema
Late presentation of anterior STEMI
s/p pLAD BO (06/24/24)
Ischemic cardiomyopathy, EF 30-35% (new diagnosis)
HTN
HLD
Echo 06/24/2024: EF 30 to 35% with moderately reduced LV systolic function. Anterior wall and anterior septum are severely hypokinetic/akinetic from midportion through apex. Mild concentric LVH. Mild to moderate MR.
Cardiac catheterization 06/24/2024: LM: NL. LAD: 100% proximal occlusion with right to left collaterals, s/p 3.0 x 22 mm [place] BO, L circumflex: LI. RCA patent. No LVG.
Plan:
-Presented 06/24/24 with abd discomfort, dyspnea and cough found to be in acute decompensated HF
-NSTEMI/late presentation of STEMI. ECG with anterior infarct, recent. Troponin peaked 5.11.
-TTE 06/24/24 with reduced LVEF 30-35% with LAD territory wall motion abnormality
-Late presentation of STEMI he underwent LHC 06/24/24 and was found to have occlusion of proximal LAD with right to left collaterals. Now status post proximal LAD 3.0 x 22 mm Jamarcus BO LAD
-Continue aspirin and Brilinta for 1 year uninterrupted. Per case management patient eligible for co-pay card for Brilinta at discharge.
-CP free
-Continue beta-timbo, ARB and statin
-Prestatin lipids TC 260, HDL 33, LDL 202, triglycerides 128. Hemoglobin A1c 5.7%. New to high intensity atorvastatin 80 mg
-Discussed cardiac rehab
#HFrEF
Creatinine was up to 1.8. Continue to hold Lasix today. Would also hold valsartan for now.
He is still somewhat volume overloaded. Ideally we restarted Lasix tomorrow. Hopefully elevated creatinine is more result of some mild contrast-induced nephropathy.
Initially being treated for possible pneumonia. Pro-Chalino negative. Patient notes improved cough. Consider discontinuation of antibiotics.
Patient was also noted to have nocturnal desaturation during sleep. Consider outpatient evaluation for obstructive sleep apnea. Pulmonary following.
Discussed with nursing staff, patient and Jennyfer at bedside
History of Present Illness 06/24/2024:
63M PMHx hypertension who presents for evaluation of abdominal discomfort, dyspnea and cough
Patient reports that he felt unwell approximately 5 days ago, had some epigastric discomfort which was approx 5 out of 10 in intensity as well diarrhea
Approx 2 days prior to admission he developed dyspnea, cough and chest pressure. Tells me chest pressure was approx 2 out of 10 in intensity earlier today but at the time of my evaluation in the emergency department reported that he was feeling
back to baseline.
In the D[facility] was hypertensive and hypoxic requiring supplemental O2. Identified as having diffuse infiltrates on CXR c/w pulm edema. ProBNP >3k. Troponin intially 4.0. ECG concerning for recent anterior STEMI.
Some of the history provided by his and daughter who are at bedside
Progress Note - Armhole Feller Handstitching Machine
Subjective
Date of Service: June 27, 2024
feels well. No chest pains/sob
Objective
Labs:
06/26/24 05:03
06/27/24 04:07
Labs
Hgb 11.9 g/dL (13.0-18.0) L 06/26/24 05:03
Hct 34.9 % (39.0-52.0) L 06/26/24 05:03
Plt Count 307 10^3/uL (130-400) 06/26/24 05:03
APTT Cancelled 06/24/24 21:30
Sodium 142 mmol/L (135-145) 06/27/24 04:07
Potassium 3.0 mmol/L (3.5-5.1) L 06/27/24 04:07
BUN 45 mg/dl (9-20) H 06/27/24 04:07
Creatinine 1.8 mg/dL (0.7-1.3) H 06/27/24 04:07
Glucose 107 mg/dl (70-99) H 06/27/24 04:07
Troponins
06/24/24 06/24/24 06/24/24
14:52 19:47 21:00
Troponin I 3.540 H* 4.380 H* Cancelled
06/24/24 06/25/24 06/25/24
23:20 01:03 05:20
Troponin I Cancelled 5.110 H* Cancelled
06/25/24
06:38
Troponin I 4.910 H*
Vital Signs and I&O:
Vital Signs
Temp Pulse Resp BP Pulse Ox
97.7 F 66 16 112/78 99
06/27/24 10:56 06/27/24 14:00 06/27/24 10:56 06/27/24 10:59 06/27/24 10:59
Vital Signs
Temp Pulse Resp BP Pulse Ox
97.7 F 66 16 112/78 99
06/27/24 10:56 06/27/24 14:00 06/27/24 10:56 06/27/24 10:59 06/27/24 10:59
Intake & Output
06/25/24 06/26/24 06/27/24 06/28/24
06:59 06:59 06:59 06:59
Intake Total 480 / 480 670 / 670 240 / 240
Output Total 2075 / 2075 2200 / 2200 3500 / 3500 450 / 450
Balance -1595 / -1595 -1530 / -1530 -3500 / -3500 -210 / -210
Physical Exam
Physical Exam
GEN: No distress, awake, Ox3
HEENT: supple, anicteric, mmm
LUNGS: CTA, no wheezes/rales
CV: Reg, S1/S2, 1/6 syst LSB, no gallop
ABD: soft, BS+, NT/ND
EXT: No edema
NEURO: Gross non-focal
SKIN: No rash
[2024-06-27 15:52] VITALS: BP 124/78
[2024-06-27] MEDS: LOVENOX 40 MG SC (17:32)
[2024-06-27] MEDS: LIPITOR 80 MG PO (17:32)
[2024-06-27 19:03] VITALS: BP 121/68
[2024-06-27 23:18] VITALS: BP 116/67
[2024-06-28] VITALS (7 sets, daily range): BP systolic 102–152; BP diastolic 53–83; BMI 35.1
[2024-06-28 04:40] LABS: Blood Urea Nitrogen 42 mg/dl (9-20); Calcium 8.6 mg/dl (8.4-10.2); Carbon Dioxide 25 mmol/L (22-30); Chloride 104 mmol/L (98-107); Estimated Creatinine Clearance 74 ml/min; Glucose 101 mg/dl (70-99); Potassium 3.3 mmol/L (3.5-5.1); Sodium 143 mmol/L (135-145); eGFR 52.31
--- NOTE | 2024-06-28 05:04 | W.PN.UPDATE ---
Update Note
Progress Note Update
k 3.3, kcl 20meq POx1 now
[2024-06-28] MEDS: KCL 20 MEQ PO (05:18)
--- NOTE | 2024-06-28 05:41 | PTCARENOTE ---
Pt NSR on monitor. VSS. Denies pain or discomfort. Potassium depleted. Pt ambulates independently outside the room.
[2024-06-28] MEDS: BRILINTA 90 MG PO ×2 (09:03→19:57)
[2024-06-28] MEDS: PROTONIX 40 MG PO (09:03)
[2024-06-28] MEDS: COREG 3.125 MG PO ×2 (09:03→19:57)
[2024-06-28] MEDS: LOW STRENGTH ASPIRIN 81 MG PO (09:04)
--- NOTE | 2024-06-28 09:06 | W.PN.PUL.V3 ---
Today's Communication / Plan
-
Increase activity
Diuresis per cardiology
Outpatient sleep study has been arranged with pulmonary/sleep disorders follow-up
Pulmonary will sign off-please call with questions
Assessment
-
Patient is a 63-year-old male with previous history of hypertension, prediabetes, presenting to ER with abdominal pain, decreased appetite nausea loose stools x 1 week. Began developing productive cough, shortness of breath, chills. In ER noted
to have EKG changes with ST segment changes and elevated troponin, ruled in for acute ACS. Underwent left heart catheterization on 06/24/2024 with occlusion of LAD status post stent. Notably he had persistent hypoxemia with possible upper
respiratory infection given symptoms. He is being treated for concurrent pneumonia. He is also placed on 6 to 7 L nasal cannula. He has no prior known history of lung disease. Nonsmoker.
Acute hypoxic respiratory failure
Acute STEMI w/ elevated troponins, EKG changes s/p LHC with LAD dz s/p stent 06/24/24
Acute systolic heart failure, EF 30-35%
Mild to moderate mitral regurgitation
Possible community acquired pneumonia
Leukocytosis
GRAY, creatinine 1.6 (BL 0.9-1.3)
Hypokalemia
Obstructive sleep apnea suspected-snoring, apneas, unrefreshed, daytime somnolence
Conditions present prior to admission:
Hyperlipidemia
Essential hypertension
History of prediabetes/metabolic syndrome
Obesity BMI 35
Plan
Respiratory status is stable
Continue supplemental oxygen-currently on room air
Nebulizers if needed-currently not bronchospastic
Aspiration precautions
Prior history of lung disease is not noted
Lifelong nonsmoker, no family history
Suspect CHRISSIE, but never had a sleep study-I have asked the office to arrange home polysomnogram as soon as possible with outpatient follow-up thereafter
Sputum culture-4 specimen
Follow leukocytosis
Procalcitonin negative--antibiotics discontinued 06/26/2024
Diuresis as tolerated-held due to increased creatinine-now improved
Monitor renal function, electrolytes, intake/output, lower extremity edema and weight
Replace electrolytes as needed
Cardiology following-correspondence reviewed
TTE 06/24/24 with reduced LVEF 30-35% with LAD territory wall motion abnormality
[facility] 06/24/24 and was found to have occlusion of proximal LAD with right to left collaterals status post proximal LAD 3.0 x 22 mm Siren BO LAD
Weight loss recommended
Reviewed with nursing
Discharge planning
Pulmonary will sign off-please call with questions-Home sleep study has been arranged with subsequent follow-up
Will need outpatient pulmonary evaluation in our office for PFTs and 6MWT-Home polysomnogram currently being arranged with outpatient pulmonary follow-up thereafter
Risk factors assessed for underlying sleep disordered breathing also noted, recommend outpatient PSG/sleep evaluation
Diagnostic Data
Chest X-Ray: 06/24/24- Moderate to severe CHF. Suspect superimposed left upper lobe pneumonia. Cannot rule out component of underlying chronic interstitial lung disease.
CT Scan: AP 06/24/24- 1. No significant acute abnormality identified in the abdomen or pelvis, as described above.
2. A 2.1 cm left adrenal nodule likely reflects an adenoma, although indeterminate on this exam. Recommend outpatient workup with dedicated adrenal mass protocol CT abdomen without and with contrast for confirmation.
3. Small bilateral pleural effusions with probable air trapping bilaterally. Infectious/inflammatory pneumonitis not excluded.
Echo: Normal left ventricular chamber size. Moderately reduced left ventricular systolic function. Left ventricular ejection fraction is 30-35% by Reza's method. Anterior wall and anteroseptum are severely hypo- to akinetic from mid portion
through apex consistent with LAD territory regional wall motion abnormality. Mild concentric left ventricular hypertrophy. Normal right ventricular size. Normal right ventricular systolic function. Mild to moderate mitral regurgitation. Aortic
sclerosis without stenosis. The IVC is dilated and does not collapse consistent with severely elevated right atrial pressure.
No prior study for comparison
[facility] 06/24/24- CONCLUSIONS
1. Late presentation of anterior wall myocardial infarction complicated by heart failure and respiratory insufficiency.
2. Successful stenting of the proximal LAD with a 3.0 x 22 mm Jamarcus stent that was implanted at nominal pressures and postdilated in its proximal midportion with a 3.5 mm noncompliant balloon to 20 dawood
Subjective Data
-
Date of Service:
Date of Service: June 28, 2024
Chief Complaint: Pulmonary Follow Up and Dyspnea Follow Up
Subjective:
Feels better, no complaints of shortness of breath, chest pain, chest tightness, productive cough or abdominal pain
Review of Systems
General: Other ( Per HPI)
Objective Data
Data Reviewed
Vital Signs / I&O:
Vital Signs
Temp Pulse Resp BP Pulse Ox
98.7 F 62 18 125/79 95
06/28/24 07:32 06/28/24 09:03 06/28/24 07:32 06/28/24 09:03 06/28/24 07:32
Intake and Output
06/27/24 06/28/24 06/29/24
06:59 06:59 06:59
Intake Total 1060 / 1060
Output Total 3500 / 3500 975 / 975
Balance -3500 / -3500 85 / 85
SaO2: 95
Nasal Cannula flow liters per minute: 2
Physical Exam
General: Respiratory Distress (n) and Comfortable
HEENT: Normocephalic, Anicteric, Moist Mucous Membranes and Other (Thick neck)
Cardiovascular: Regular Rhythm
Respiratory: Wheeze (Forced expiratory), Crackles (Rare basilar), Rhonchi (n), Non-Labored Respirations, Accessory Resp Muscle Use (n) and Stridor (n)
GI: Soft, Non Distended and Non Tender
Neurology: Awake, Alert and No Motor Deficits
Skin: Warm, Good Color, Cyanosis (n), Jaundice (n) and Rash (n)
Labs/Micro/Reports
Lab Data
06/26/24 05:03
06/28/24 03:44
Microbiology
06/24/24 15:02 Sputum Respiratory Culture - Final
06/24/24 15:02 Sputum Gram Stain - Final
--- NOTE | 2024-06-28 10:09 | W.PN.CARDCBS ---
Addendum entered and electronically signed by Lawrence Carter MD 06/28/24 11:27:
I saw and examined the patient.
The Can Runner's note was reviewed and I agree with the note.
Comment:
GEN: No distress, awake, Ox3
HEENT: supple, anicteric, mmm
LUNGS: CTA, no wheezes/rales
CV: Reg, S1/S2, 1/6 syst LSB, no gallop
ABD: soft, BS+, NT/ND
EXT: No edema
NEURO: Gross non-focal
SKIN: No rash
Plan:
Creatinine is down to 1.5 and improved. Will restart valsartan and Lasix today. Replete potassium.
Will continue to follow kidney function.
Continue Coreg, aspirin, Brilinta, and atorvastatin.
Will consider restarting Farxiga in a.m. if kidneys remain stable.
Long-term would switch valsartan to Entresto and consider adding Aldactone if possible and blood pressure tolerates.
Overall doing well.
Original Note:
Today's Communication / Plan
-
Resume valsartan 40 mg
Resume Lasix 40 mg
Replete potassium, give extra 40 meq in pm
Repeat BMP in a.m.
Consider resuming Farxiga in a.m. if renal function stable
Impression / Plan
-
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
Assessment:
Presented 06/24/24 with abd discomfort, dyspnea and cough
Acute HFrEF, 3300
Hypoxic resp failure
Pulm edema
Late presentation of anterior STEMI, peak troponin 5.11
s/p pLAD BO (06/24/24)
Ischemic cardiomyopathy, EF 30-35% (new diagnosis)
HTN
HLD
Echo 06/24/2024: EF 30 to 35% with moderately reduced LV systolic function. Anterior wall and anterior septum are severely hypokinetic/akinetic from midportion through apex. Mild concentric LVH. Mild to moderate MR.
Cardiac catheterization 06/24/2024: LM: NL. LAD: 100% proximal occlusion with right to left collaterals, s/p 3.0 x 22 mm [place] BO, L circumflex: LI. RCA patent. No LVG.
Plan:
-Presented 06/24/24 with abd discomfort, dyspnea and cough found to be in acute decompensated HF
-NSTEMI/late presentation of STEMI. ECG with anterior infarct, recent. Troponin peaked 5.11.
-TTE 06/24/24 with reduced LVEF 30-35% with LAD territory wall motion abnormality
-Late presentation of STEMI he underwent LHC 06/24/24 and was found to have occlusion of proximal LAD with right to left collaterals. Now status post proximal LAD 3.0 x 22 mm Jamarcus BO LAD
-Continue aspirin and Brilinta for 1 year uninterrupted. Per case management patient eligible for co-pay card for Brilinta at discharge.
-CP free
-Continue beta-timbo, ARB and statin
-Prestatin lipids TC 260, HDL 33, LDL 202, triglycerides 128. Hemoglobin A1c 5.7%. New to high intensity atorvastatin 80 mg
-Discussed cardiac rehab
#HFrEF
Creatinine peaked at 1.8 06/26, 06/27, after holding ARLENE-I-ARB and Lasix now down to 1.5 (this appears to be baseline).
Resume Valsartan 40 mg Daily
He is still somewhat volume overloaded. Will resume Lasix 40 mg PO
Replete potassium. Patient given 20 mEq in AM. Will give an additional 40 mg in p.m.
Consider resuming Farxiga if renal function stable 06/29/2024
Eventual consideration of Aldactone as outpatient if blood pressure and renal function allow
Will need close monitoring of renal function including BMP in 5-7 days as outpt
Initially being treated for possible pneumonia. Pro-Chalino negative. Patient notes improved cough. Now off antibiotics.
Patient was also noted to have nocturnal desaturation during sleep. Will need outpatient evaluation for obstructive sleep apnea. Pulmonary following.
Discussed with nursing staff, patient
History of Present Illness 06/24/2024:
63M PMHx hypertension who presents for evaluation of abdominal discomfort, dyspnea and cough
Patient reports that he felt unwell approximately 5 days ago, had some epigastric discomfort which was approx 5 out of 10 in intensity as well diarrhea
Approx 2 days prior to admission he developed dyspnea, cough and chest pressure. Tells me chest pressure was approx 2 out of 10 in intensity earlier today but at the time of my evaluation in the emergency department reported that he was feeling
back to baseline.
In the D[facility] was hypertensive and hypoxic requiring supplemental O2. Identified as having diffuse infiltrates on CXR c/w pulm edema. ProBNP >3k. Troponin intially 4.0. ECG concerning for recent anterior STEMI.
Some of the history provided by his and daughter who are at bedside
Progress Note - Cosmetology Teacher
Subjective
Date of Service: June 28, 2024
Patient seen and examined. Patient reports he is feeling well. Denies chest pain, abdominal pain or bloating, shortness of breath, dizziness or lightheadedness.
Objective
Labs:
06/26/24 05:03
06/28/24 03:44
Labs
Hgb 11.9 g/dL (13.0-18.0) L 06/26/24 05:03
Hct 34.9 % (39.0-52.0) L 06/26/24 05:03
Plt Count 307 10^3/uL (130-400) 06/26/24 05:03
APTT Cancelled 06/24/24 21:30
Sodium 143 mmol/L (135-145) 06/28/24 03:44
Potassium 3.3 mmol/L (3.5-5.1) L 06/28/24 03:44
BUN 42 mg/dl (9-20) H 06/28/24 03:44
Creatinine 1.5 mg/dL (0.7-1.3) H 06/28/24 03:44
Glucose 101 mg/dl (70-99) H 06/28/24 03:44
Vital Signs and I&O:
Vital Signs
Temp Pulse Resp BP Pulse Ox
98.7 F 62 18 125/79 95
06/28/24 07:32 06/28/24 09:03 06/28/24 07:32 06/28/24 09:03 06/28/24 09:06
Vital Signs
Temp Pulse Resp BP Pulse Ox
98.7 F 62 18 125/79 95
06/28/24 07:32 06/28/24 09:03 06/28/24 07:32 06/28/24 09:03 06/28/24 09:06
Intake & Output
06/26/24 06/27/24 06/28/24 06/29/24
06:59 06:59 06:59 06:59
Intake Total 670 / 670 1060 / 1060
Output Total 2200 / 2200 3500 / 3500 975 / 975
Balance -1530 / -1530 -3500 / -3500 85 / 85
Physical Exam
Physical Exam
GEN: No distress, awake, Ox3, sitting up in bed
HEENT: supple, anicteric, mmm
LUNGS: Mildly diminished at bases otherwise CTA, no wheezes/rales; on room air
CV: Reg, S1/S2, no murmur, rub or gallop
ABD: soft, BS+, NT/ND
EXT: No edema, clubbing or cyanosis
NEURO: Gross non-focal
SKIN: No rash, warm, dry, pink
[2024-06-28 10:24] LABS: ACT-LR - POC > 397 Seconds (116-155)
[2024-06-28] MEDS: LASIX 40 MG PO (11:13)
[2024-06-28] MEDS: DIOVAN 40 MG PO (11:36)
--- NOTE | 2024-06-28 12:00 | W.PN.HOSP.TC ---
Today's Communication/Plan
-
trend cr
GDMT lasix/arb/statin
anti-platelet agents
Assessment / Plan
Assessment / Plan
Physical Exam
General: No Apparent Distress
HEENT: Normocephalic, Moist mucous membranes and Atraumatic
Respiratory: Clear, mild basal rales, no wheezes
Cardiac: S1/S2, Regular Rhythm and Peripheral Edema; No Murmur or Rub
GI: Soft, Non Tender, Non Distended and Normal Bowel Sounds; No Organomegaly
Rectal: No bleeding
Musculoskeletal: No Clubbing, No Cyanosis and No Edema
Skin: No Rash
Neuro: Nonfocal/grossly intact
Psych: no agitation
# STEMI ,anterior wall myocardial infarction, s/p successful angioplasty of LAD
On Dual anti-platelet therapy ( per studio technician: Uninterrupted dual antiplatelet therapy for at least 1 year), high intensity statin therapy
- s/p heparin drip & Nitroglycerin drip
- Appreciate cardiology help
# Hyperlipidemia
LDL 202
Total cholesterol 260
Started on high intensity statin with Lipitor 80 mg QD
# Acute new onset systolic heart failure
Echo: LVEF 30-35%, mild to moderate mitral regurgitation, aortic sclerosis without stenosis.
-Cardiac BNP of 3300 on admission
-Chest x-ray showed signs of CHF
-Cr stabilized to 1.5. Started on lasix 40mg daily. Valsartan. Trend bmp
-cards recs
# Acute hypoxic respiratory failure
c/w to treat both CHF
procal negative and abx Dced.
wean o2 as tolerated. On room air.
Consult pulmonary
# Left upper lobe pneumonia, community acquired likely viral
-Leukocytosis on presentation, no fevers
- sputum culture
-Procal negative. off Ceftriaxone/azithromycin
-Mucinex
-Negative COVID
# Abdominal discomfort/loose stools
Resolved
CT a A/P no acute issues. Incidental left adrenal nodule, will need OP work up.
# Acute kidney injury on suspect underlying Chronic kidney disease stage II to IIIA
We do not have a recent baseline renal function
Monitor renal function while receiving diuretic therapy and had contrast
No hydronephrosis on CT
Cr stabilized.
#Essential hypertension
Monitor blood pressure. Continue current regimen.
#History of prediabetes/ metabolic syndrome/a1c 5.7
# Obesity BMI around 35
# Hypokalemia, replace
Full code
DVT prophylaxis, SQ Lovenox.
Cardiac diet
Anticipated Discharge: Within 24 hours
Subjective/Interval History
-
Date of Service: June 28, 2024
sitting in chair
on room air
denies cp or sob
Objective Data
-
Labs:
Laboratory Results
06/28/24
03:44
Sodium 143
Potassium 3.3 L
Chloride 104
Carbon Dioxide 25
BUN 42 H
Creatinine 1.5 H
Glucose 101 H
Calcium 8.6
Vital Signs:
Vital Signs
Temp Pulse Resp BP Pulse Ox
97.7 F 70 16 130/77 98
06/28/24 11:29 06/28/24 11:36 06/28/24 11:29 06/28/24 11:36 06/28/24 11:29
I&O
06/27/24 06/28/24 06/29/24
06:59 06:59 06:59
Intake Total 1060 / 1060 360 / 360
Output Total 3500 / 3500 975 / 975
Balance -3500 / -3500 85 / 85 360 / 360
[2024-06-28] MEDS: KCL 40 MEQ PO (13:07)
--- NOTE | 2024-06-28 17:06 | PTCARENOTE ---
All nursing measures discussed w/ pt and pt's spouse. Encouraged questions. Will monitor.
[2024-06-28] MEDS: LIPITOR 80 MG PO (17:26)
[2024-06-28] MEDS: LOVENOX 40 MG SC (18:40)
[2024-06-29 03:23] VITALS: BMI 35.4
[2024-06-29 03:26] VITALS: BP 132/75
[2024-06-29 04:06] LABS: Blood Urea Nitrogen 36 mg/dl (9-20); Calcium 8.7 mg/dl (8.4-10.2); Carbon Dioxide 27 mmol/L (22-30); Chloride 104 mmol/L (98-107); Estimated Creatinine Clearance 74 ml/min; Glucose 113 mg/dl (70-99); Magnesium 2.1 mg/dl (1.6-2.3); Potassium 3.6 mmol/L (3.5-5.1); Sodium 144 mmol/L (135-145); eGFR 52.31
--- NOTE | 2024-06-29 04:57 | PTCARENOTE ---
Patient ambulating self in room w/out difficulty. Denies any pain or discomfort. Tele remains SR, VSS. Right radial/right groin site LUCIE. POC ongoing. Call llanos within reach.
[2024-06-29 07:30] VITALS: BP 124/88
[2024-06-29] MEDS: COREG 3.125 MG PO (08:06)
[2024-06-29] MEDS: PROTONIX 40 MG PO (08:06)
[2024-06-29] MEDS: DIOVAN 40 MG PO (08:06)
[2024-06-29] MEDS: LOW STRENGTH ASPIRIN 81 MG PO (08:06)
[2024-06-29] MEDS: LASIX 40 MG PO (08:06)
[2024-06-29] MEDS: BRILINTA 90 MG PO (08:07)
--- NOTE | 2024-06-29 08:43 | PTCARENOTE ---
Assumed care of pt from night RN. Pt received awake and alert, Ox3. VSs, CM shows NSR 60's, POX 98% on RA right radial and femoral sites remain CDI with good CMS. Up 2 lbs today. Pt denies any pain or discomfort at this time.
--- NOTE | 2024-06-29 10:14 | CM ---
Chart reviewed. Patient is independent of ADLS, lives with his in a 2 [address], 1 [facility]ABAK, 0 DME. Patient newly diagnosed Heart Failure. Referral sent to [facility]. Plan is for the patient to return home with [facility]. to follow
--- NOTE | 2024-06-29 10:34 | W.PN.CARDCBS ---
Addendum entered and electronically signed by Lawrnece Carter MD 06/29/24 10:58:
I saw and examined the patient.
The Government Relations Director's note was reviewed and I agree with the note.
Comment:
GEN: No distress, awake, Ox3
HEENT: supple, anicteric, mmm
LUNGS: CTA, no wheezes/rales
CV: Reg, S1/S2, 1/6 syst LSB, no gallop
ABD: soft, BS+, NT/ND
EXT: No edema
NEURO: Gross non-focal
SKIN: No rash
Plan:
Clinically looks well. Creatinine stable at 1.5.
Continue aspirin, Brilinta, Coreg, valsartan, Lasix, and will start Farxiga 10 mg daily.
We will repeat basic metabolic panel in 1 week.
Agree with plans for outpatient sleep study and cardiac rehab.
Okay for discharge from cardiology standpoint.
Long-term plan will be to reevaluate LV EF by echo in greater than 40 days.
QRS is left bundle pattern but only 110 ms.
Original Note:
Today's Communication / Plan
-
asa, brilinta, coreg, valsartan, lasix, farxiga
consider low dose daily K supplementation on DC
BMP next week
cardiac rehab
OP sleep study
OP cardiac followup arranged
will need repeat echo to reeval EF as OP
Impression / Plan
-
Candle Wrapper: None prior to admission, initially seen by Dontrell
Assessment:
Presented 06/24/24 with abd discomfort, dyspnea and cough
Acute HFrEF, 3300
Hypoxic resp failure
Pulm edema
Late presentation of anterior STEMI, peak troponin 5.11
s/p pLAD BO (06/24/24)
Ischemic cardiomyopathy, EF 30-35% (new diagnosis)
HTN
HLD
Echo 06/24/2024: EF 30 to 35% with moderately reduced LV systolic function. Anterior wall and anterior septum are severely hypokinetic/akinetic from midportion through apex. Mild concentric LVH. Mild to moderate MR.
Cardiac catheterization 06/24/2024: LM: NL. LAD: 100% proximal occlusion with right to left collaterals, s/p 3.0 x 22 mm [place] BO, L circumflex: LI. RCA patent. No LVG.
Plan:
-Presented 06/24/24 with abd discomfort, dyspnea and cough found to be in acute decompensated HF
-late presentation of STEMI. ECG with anterior infarct, recent. Troponin peaked 5.11.
-TTE 06/24/24 with reduced LVEF 30-35% with LAD territory wall motion abnormality
-underwent LHC 06/24/24 and was found to have occlusion of proximal LAD with right to left collaterals, status post proximal LAD BO
-Continue aspirin and Brilinta for 1 year uninterrupted. Per case management patient eligible for co-pay card for Brilinta at discharge.
-Cr bumped to 1.8 post diuresis and cath. improving, 1.5 on 06/28 and stable 06/29. low dose valsartan and lasix resumed 06/28. farxiga to start today. consider eventual addition of aldactone pending BP/Cr trend
-Continue low dose coreg, uptitrate as able
-Prestatin lipids TC 260, HDL 33, LDL 202, triglycerides 128. Hemoglobin A1c 5.7%. New to high intensity atorvastatin 80 mg
-cardiac rehab
-BMP next week. given hypokalemia with diuresis, consider DC on low dose potassium (would stop as OP if starting aldactone)
-Patient was also noted to have nocturnal desaturation during sleep. Will need outpatient evaluation for obstructive sleep apnea. Pulmonary following.
-OP cardiac follow up arranged
-planned for DC today
-will need repeat echo as OP to reeval EF
History of Present Illness 06/24/2024:
63M PMHx hypertension who presents for evaluation of abdominal discomfort, dyspnea and cough
Patient reports that he felt unwell approximately 5 days ago, had some epigastric discomfort which was approx 5 out of 10 in intensity as well diarrhea
Approx 2 days prior to admission he developed dyspnea, cough and chest pressure. Tells me chest pressure was approx 2 out of 10 in intensity earlier today but at the time of my evaluation in the emergency department reported that he was feeling
back to baseline.
In the [facility] was hypertensive and hypoxic requiring supplemental O2. Identified as having diffuse infiltrates on CXR c/w pulm edema. ProBNP >3k. Troponin intially 4.0. ECG concerning for recent anterior STEMI.
Some of the history provided by his and daughter who are at bedside
Progress Note - Candle Wrapper
Subjective
Date of Service: June 29, 2024
no issues overnight noted
Objective
Labs:
06/26/24 05:03
06/29/24 03:33
Labs
Hgb 11.9 g/dL (13.0-18.0) L 06/26/24 05:03
Hct 34.9 % (39.0-52.0) L 06/26/24 05:03
Plt Count 307 10^3/uL (130-400) 06/26/24 05:03
APTT Cancelled 06/24/24 21:30
Sodium 144 mmol/L (135-145) 06/29/24 03:33
Potassium 3.6 mmol/L (3.5-5.1) 06/29/24 03:33
BUN 36 mg/dl (9-20) H 06/29/24 03:33
Creatinine 1.5 mg/dL (0.7-1.3) H 06/29/24 03:33
Glucose 113 mg/dl (70-99) H 06/29/24 03:33
Vital Signs and I&O:
Vital Signs
Temp Pulse Resp BP Pulse Ox
98.3 F 73 20 124/88 98
06/29/24 07:33 06/29/24 08:00 06/29/24 07:33 06/29/24 07:30 06/29/24 08:34
Vital Signs
Temp Pulse Resp BP Pulse Ox
98.3 F 73 20 124/88 98
06/29/24 07:33 06/29/24 08:00 06/29/24 07:33 06/29/24 07:30 06/29/24 08:34
Intake & Output
06/27/24 06/28/24 06/29/24 06/30/24
07:59 07:59 07:59 07:59
Intake Total 1060 / 1420 780 / 780
Output Total 2550 / 3000 975 / 975 1175 / 1175
Balance -2550 / -2760 85 / 445 -395 / -395
[2024-06-29] MEDS: FARXIGA 10 MG PO (10:49)
--- NOTE | 2024-06-29 11:07 | W.PN.HOSP.TC ---
Today's Communication/Plan
-
GDMT
OP BMP
Cr stable
Assessment / Plan
Assessment / Plan
Physical Exam
General: No Apparent Distress
HEENT: Normocephalic, Moist mucous membranes and Atraumatic
Respiratory: Clear, mild basal rales, no wheezes
Cardiac: S1/S2, Regular Rhythm and Peripheral Edema; No Murmur or Rub
GI: Soft, Non Tender, Non Distended and Normal Bowel Sounds; No Organomegaly
Rectal: No bleeding
Musculoskeletal: No Clubbing, No Cyanosis and No Edema
Skin: No Rash
Neuro: Nonfocal/grossly intact
Psych: no agitation
# STEMI ,anterior wall myocardial infarction, s/p successful angioplasty of LAD
On Dual anti-platelet therapy ( per delinquent notice machine operator: Uninterrupted dual antiplatelet therapy for at least 1 year), high intensity statin therapy
- s/p heparin drip & Nitroglycerin drip
- Appreciate cardiology help
# Hyperlipidemia
LDL 202
Total cholesterol 260
Started on high intensity statin with Lipitor 80 mg QD
# Acute new onset systolic heart failure
Echo: LVEF 30-35%, mild to moderate mitral regurgitation, aortic sclerosis without stenosis.
-Cardiac BNP of 3300 on admission
-Chest x-ray showed signs of CHF
-Cr stabilized to 1.5. Started on lasix 40mg daily. Valsartan. Trend bmp. Started on Farxiga.
-cards recs
# Acute hypoxic respiratory failure
c/w to treat both CHF
procal negative and abx Dced.
wean o2 as tolerated. On room air.
Consult pulmonary
# Left upper lobe pneumonia, community acquired likely viral
-Leukocytosis on presentation, no fevers
- sputum culture
-Procal negative. off Ceftriaxone/azithromycin
-Mucinex
-Negative COVID
# Abdominal discomfort/loose stools
Resolved
CT a A/P no acute issues. Incidental left adrenal nodule, will need OP work up.
# Acute kidney injury on suspect underlying Chronic kidney disease stage II to IIIA
We do not have a recent baseline renal function
Monitor renal function while receiving diuretic therapy and had contrast
No hydronephrosis on CT
Cr stabilized.
#Essential hypertension
Monitor blood pressure. Continue current regimen.
#History of prediabetes/ metabolic syndrome/a1c 5.7
# Obesity BMI around 35
# Hypokalemia, replace
Full code
DVT prophylaxis, SQ Lovenox.
Cardiac diet
Discussed with family member at bedside
More than 30 minutes spent in discharge including
Final examination of the patient
Summarizing hospital stay
Instructions for continuing care to all relevant caregivers
Preparation of discharge records, prescriptions, and referral forms
Total time spent (in minutes): 54
Anticipated Discharge: Today
Subjective/Interval History
-
Date of Service: June 29, 2024
Denies chest pain shortness of breath
Objective Data
-
Labs:
Laboratory Results
06/29/24
03:33
Sodium 144
Potassium 3.6
Chloride 104
Carbon Dioxide 27
BUN 36 H
Creatinine 1.5 H
Glucose 113 H
Calcium 8.7
Vital Signs:
Vital Signs
Temp Pulse Resp BP Pulse Ox
98.3 F 68 20 124/88 98
06/29/24 07:33 06/29/24 10:00 06/29/24 07:33 06/29/24 07:30 06/29/24 08:34
I&O
06/28/24 06/29/24 06/30/24
06:59 06:59 06:59
Intake Total 1060 / 1060 780 / 780
Output Total 975 / 975 1175 / 1175
Balance 85 / 85 -395 / -395
--- NOTE | 2024-06-29 11:13 | W.DCSUMMARY ---
Discharge Summary
Discharge Data
Date of Admission: 06/24/24
Date of Discharge: 06/29/24
-
Pending Results: No
Hospital Course
63-year-old male past medical history of hypertension who presents the hospital with complaints of abdominal discomfort dyspnea and cough. Patient said he was feeling unwell for 5 days prior to arrival. Was also complaining of chest pressure.
Upon admission to hospital patient was found to be severely elevated blood pressure and and hypoxic. Chest x-ray showed pulmonary edema. proBNP was elevated. Troponin were checked was found to be elevated. EKG with concern for STEMI. Patient
underwent cardiac catheterization with successful angioplasty of LAD with late presentation of STEMI. Patient was started on dual antiplatelet regimen with aspirin and Brilinta. Status post heparin and nitroglycerin drip. Patient cholesterol is
found to be elevated and started on statin. Patient was also found to have an acute onset of systolic heart failure EF of 30-35% with mild to moderate mitral regurgitation, aortic sclerosis. Patient was aggressively diuresed. Patient oxygenation
was slowly able to be weaned off and he was stable on room air. Patient was initially started on antibiotic with concern for pneumonia. Pro-Chalino was negative. Patient was taken off antibiotics. Patient also with acute kidney injury on Chronic
kidney disease likely secondary to diuretic therapy and contrast exposure. Patient creatinine down trended. Patient was weaned off of IV Lasix to p.o. 40 mg of Lasix. Patient remained chest pain-free and was stable on room air. Patient be
discharged home with recommendation to follow-up with cardiology as outpatient.
Discharge Plan
-
Patient Disposition: Home (Routine Discharge)
Discharge Diagnosis/Procedures: STEMI status post cardiac catheterization
Hyperlipidemia
Acute onset of heart failure exacerbation
Acute hypoxic respiratory failure
Left upper lobe pneumonia likely viral
Abdominal discomfort
Acute kidney injury on chronic kidney disease
Condition: Fair
Diet: 2 Gram Sodium and Restrict fluids to 48 oz
Activity: With assistance and As tolerated
Driving Restrictions: As prior to admission
Blood Work: BMP in 1 week via cardiology or primary doctor
Other Services: VN and Cardiac Rehab
Specialty Instructions: Weigh Daily- Call MD for wt gain/loss 3 lbs overnight/5 lbs in 1 week
Instructions: *[facility] Heart Failure Instructions
Referrals:
[facility] [Outside] - 07/25/24 1:00 pm
(Cardiac Rehab Orientation and� First Exercise appointment is on Wednesday07/25/24 at 1pm.
The Cardiac Rehab gym is located on the first floor of the [facility].)
[facility] [Outside]
Florinda Garibay PA-C [Specified Professional Personl] - 07/04/24 7:40 am (You have a cardiology follow-up appointment at the [facility]. Please call with questions)
Alia Reddy MD [Family Provider] - in less than 1 week
Keily Cuenca DO [Active] - in three to four weeks (PFT, sleep)
Prescriptions:
New
Brilinta 90 mg Tablet
90 mg PO BID 30 Days Qty: 60 0RF
carvedilol 3.125 mg Tablet
3.125 mg PO BID 30 Days Qty: 60 0RF
valsartan 40 mg Tablet
40 mg PO DAILY 30 Days Qty: 30 0RF
dapagliflozin propanediol [Farxiga] 10 mg tablet
10 mg PO DAILY 30 Days Qty: 30 0RF
furosemide 40 mg Tablet
40 mg PO DAILY 30 Days Qty: 30 0RF
atorvastatin 40 mg Tablet
80 mg PO QPM 30 Days Qty: 60 0RF
aspirin 81 mg Tablet,Chewable
81 mg PO DAILY 30 Days Qty: 30 0RF
pantoprazole 40 mg Tablet,Delayed Release (Dr/Ec)
40 mg PO DAILY 30 Days Qty: 30 0RF
Discontinued
amlodipine 10 mg Tablet
10 mg PO DAILY
Discharge Orders:
Discharge Patient (As Directed); Ordered 06/29/24
Ordered By: Obinna Vegas
Care Plan Goals
Care Plan Goals:
Problem: Readiness for enhanced knowledge related to diagnosis and treatment plan
Goal: Understand your diagnosis and treatment plan needs, including medications if applicable.
Instructions: Know your diagnosis, underlying causes and treatment plan options, including medications if applicable. Consult with your health care team to learn about your diagnosis and treatment plan, including medications if applicable.
Discharge Date and Time
Discharge Date/Time: 06/29/24 13:27
Print Language: FRISIAN
[2024-06-29 12:15] VITALS: BP 116/66
[2024-06-29 13:20] VITALS: BP 115/68
--- NOTE | 2024-06-29 13:26 | PTCARENOTE ---
All D/C info reviewed with pt and spouse, all questions answered. Pt D/C'd home with spouse.
== END 2024-06-29 13:27 | disposition home or self-care (01) | DRG 321 ==
LOC: IVU 14:30
PROVIDERS: Internal Medicine; Internal Medicine Interventional Cardiology; Nurse Practitioner; ADMITTING PHYSICIAN Hospitalist; ATTENDING PHYSICIAN Hospitalist; CONSULT PHYSICIAN Internal Medicine; CONSULT PHYSICIAN Internal Medicine Cardiovascular Disease; EMERGENCY PHYSICIAN Emergency Medicine; FAMILY PHYSICIAN Family Medicine
PROC: B2151ZZ Fluoroscopy of Left Heart using Low Osmolar Contrast (ICD-10-PCS; 2024-06-24)
PROC: 4A023N7 Measurement of Cardiac Sampling and Pressure, Left Heart, Percutaneous Approach (ICD-10-PCS; 2024-06-24)
PROC: B2111ZZ Fluoroscopy of Multiple Coronary Arteries using Low Osmolar Contrast (ICD-10-PCS; 2024-06-24)
PROC: 027034Z Dilation of Coronary Artery, One Artery with Drug-eluting Intraluminal Device, Percutaneous Approach (ICD-10-PCS; 2024-06-24)
DX: I21.09 ST elevation (STEMI) myocardial infarction involving other coronary artery of anterior wall (principal); I50.23 Acute on chronic systolic (congestive) heart failure; J18.9 Pneumonia, unspecified organism; J96.01 Acute respiratory failure with hypoxia; I13.0 Hypertensive heart and chronic kidney disease with heart failure and stage 1 through stage 4 chronic kidney disease, or unspecified chronic kidney disease; N17.9 Acute kidney failure, unspecified; I24.9 Acute ischemic heart disease, unspecified; Z11.52 Encounter for screening for COVID-19; E87.6 Hypokalemia; E78.5 Hyperlipidemia, unspecified; Z68.35 Body mass index [BMI] 35.0-35.9, adult; E66.9 Obesity, unspecified; T50.2X5A Adverse effect of carbonic-anhydrase inhibitors, benzothiadiazides and other diuretics, initial encounter; Y84.8 Other medical procedures as the cause of abnormal reaction of the patient, or of later complication, without mention of misadventure at the time of the procedure; N18.31 Chronic kidney disease, stage 3a
CPT/HCPCS: 71045; 74177; 80048; 80053; 80061; 81003; 81015; 83036; 83605; 83690; 83735; 83880; 84145; 84484; 85025; 85027; 85347; 85379; 85730; 86803; 87070; 87205; 87811; 92978; 93005; 93306; 93458; 96365; 96366; 96367; 96375; 99291; C1725; C1753; C1769; C1874; C1894; C9600; J1327; Q9967

== ENCOUNTER → 2024-07-14 17:03 | Outpatient (REF) | payer BC, SELFPAY | LOC: DHSLP 17:03 | PROVIDERS: ATTENDING PHYSICIAN Internal Medicine Critical Care Medicine; FAMILY PHYSICIAN Family Medicine | DX: G47.33 Obstructive sleep apnea (adult) (pediatric) (principal) | CPT/HCPCS: 95800 ==

== ENCOUNTER → 2024-08-16 08:17 | Outpatient (REF) | payer BC, SELFPAY | LOC: HWRCS 08:17 | PROVIDERS: ATTENDING PHYSICIAN Physician Assistant Medical; FAMILY PHYSICIAN Family Medicine | DX: I25.5 Ischemic cardiomyopathy (principal) | CPT/HCPCS: 93306 ==

== ENCOUNTER 2024-08-16 08:38 | Outpatient (RCR) | payer BC, SELFPAY | END 2024-08-16 23:59 | disposition home or self-care (01) | LOC: CRHB 08:38 | PROVIDERS: ATTENDING PHYSICIAN Internal Medicine Cardiovascular Disease | DX: I25.10 Atherosclerotic heart disease of native coronary artery without angina pectoris (principal); I25.2 Old myocardial infarction; Z95.5 Presence of coronary angioplasty implant and graft | CPT/HCPCS: 93306; 93798 ==

== ENCOUNTER 2024-09-04 10:01 | Day surgery (SDC) | payer BC, SELFPAY ==
[2024-09-04] VITALS (8 sets, daily range): BP systolic 101–124; BP diastolic 58–81; BMI 31.6
--- NOTE | 2024-09-04 07:55 | W.ICD.CONTRA ---
Post ICD/COAT HANGER SHAPER MACHINE OPERATOR-D
-
History of CT?: Yes
LV Function
Left ventricular function study result?: Ejection Fraction </= 35%
ACEI/ARB/ARNI
Patient already on ACEI/ARB/ARNI: Yes
Beta-Jaylan
Patient already on Beta Jaylan: Yes
[2024-09-04 13:33] LABS: Hematocrit 34.3 % (39.0-52.0); Hemoglobin 11.1 g/dL (13.0-18.0); Mean Corp Hgb Conc. 32.4 g/dL (33.0-37.0); Mean Corpuscular Hgb 30.1 pg (27.0-31.0); Mean Platelet Volume 11.5 fL (7.4-10.4); Platelet Count 166 10^3/uL (130-400); Red Blood Cell Count 3.69 10^6/uL (4.70-6.10); Red Cell Dist. Width 16.1 % (11.5-14.5); White Blood Cell Count 8.2 10^3/uL (4.8-10.8)
--- NOTE | 2024-09-04 14:25 | ITS.CL.ICD ---
Pan Helper - ICD
Implantable Cardioverter Defibrillator
Procedure Report:
ICD IMPLANTATION REPORT
Date of Procedure: September 04, 2024
Primary Care Provider: Dr Alia Reddy
Primary dried yeast supervisor: Dr Fredy Henderson
PROCEDURES:
ICD Implant
HISTORY:
NYHA class 3
Cardiomyopathy type infarct related.
LVEF 30% > 40 days post- ME / revascularization (Jun 24, 2024)despite guideline directed medical therapy at maximally tolerated doses.
Primary prevention
Life expectancy > 1 year
Lidocaine with epi was used for local anesthesia. Central venous access was obtained via axillary venipuncture. An incision was made along the left chest and a pre-pectoral pocket was formed. Using a Seldinger technique and peel-away sheaths, the
pacing leads were placed under fluoroscopic guidance.
Once testing (see below) showed adequate and stable function, the leads were secured using the suture sleeves. The pocket was liberally irrigated with antibiotic solution. The leads were connected to the generator header and the leads and
generator were placed within the pocket. Fluoroscopy confirmed stable lead position. The pocket was closed in the typical fashion.
IMPLANTS:
ICD Medtronic [id number], SN [id number], Left Pectoral
RA Medtronic 5076, SN [id number], RAA
RV Medtronic 6935, SN [id number], RV apical septum
DEVICE TESTING:
Sensing: RA 2 mV, RV 5 mV
Capture: RA 0.5 V@0.5ms, RV 0.5 V@0.5ms
Ohms: RA 460 , RV 400
FINAL PROGRAMMING:
Manuel Pacing: AAIR <=> DDDR 50-130 ppm
COMPLICATIONS:
None
CONCLUSIONS:
Successful implant of dual chamber ICD system.
Normal function of ICD and leads at implant testing.
Post procedure I met with the patient's and 2 daughters to review the case findings and outcomes. All of their questions were answered.
RECOMMENDATIONS:
Post op care (tele, CXR, IV abx).
In-Office wound check in 5-7 days.
Copy to:
Dr Alia Reddy
Dr Fredy Henderson
[2024-09-04] MEDS: LIPITOR 80 MG PO (16:57)
--- NOTE | 2024-09-04 17:00 | PTCARENOTE ---
Received the patient from the blood and plasma laboratory assistant in his bed. The patient is aaox3, VSS, 97% on RA. A-pacing is noted on the monitor with a HR of 60. His right chest wall dressing is c/d/i. His right arm immobilizer is in place. He has no c/o pain or
discomfort. Activity restrictions and expected oob time discussed with the patient. I oriented him to his room and his call llanos is within reach.
[2024-09-04] MEDS: COREG 3.125 MG PO (20:15)
[2024-09-04] MEDS: ENTRESTO 24 MG/26 MG 1 TAB PO (20:15)
[2024-09-04] MEDS: ANCEF 5 IV (20:16)
[2024-09-04] MEDS: BRILINTA 90 MG PO (20:16)
[2024-09-05 05:42] VITALS: BP 116/76
[2024-09-05 05:55] VITALS: BMI 31.5
[2024-09-05] MEDS: ANCEF 5 IV (05:55)
--- NOTE | 2024-09-05 06:09 | PTCARENOTE ---
Pt received at change of shift. APaced with PVCs on tele with HR 60s. R chest wall PPM site c/d/i with pressure dressing and R arm immobilizer in place. Pt with no complaints of pain at this time. Ambulating independently in room and hallway
without difficulty. Plan of care for shift discussed and pt verbalizes understanding. Can make needs known. Call llanos within reach.
[2024-09-05 06:21] LABS: Hematocrit 36.4 % (39.0-52.0); Hemoglobin 12.3 g/dL (13.0-18.0); Mean Corp Hgb Conc. 33.8 g/dL (33.0-37.0); Mean Corpuscular Hgb 30.8 pg (27.0-31.0); Mean Platelet Volume 12.2 fL (7.4-10.4); Platelet Count 169 10^3/uL (130-400); Red Cell Dist. Width 15.9 % (11.5-14.5)
[2024-09-05 06:52] LABS: Blood Urea Nitrogen 20 mg/dl (9-20); Calcium 8.8 mg/dl (8.4-10.2); Carbon Dioxide 21 mmol/L (22-30); Chloride 109 mmol/L (98-107); Estimated Creatinine Clearance 80 ml/min; Glucose 119 mg/dl (70-99); Magnesium 2.1 mg/dl (1.6-2.3); Potassium 4.3 mmol/L (3.5-5.1); Sodium 142 mmol/L (135-145); eGFR > 60.00
[2024-09-05 07:13] VITALS: BP 123/84
[2024-09-05 07:41] LABS: Hepatitis C Antibody Negative (Negative)
--- NOTE | 2024-09-05 08:18 | W.PN.CARDCBS ---
Addendum entered and electronically signed by Sg Avilez MD 09/05/24 09:22:
Patient seen and examined
Agree with FUSING MACHINE TENDER note and assessment
Agree with FUSING MACHINE TENDER plan
Examination:
Right-sided device without hematoma
Atrial pacing on telemetry
Chest x-ray personally reviewed without pneumothorax and stable lead positions of the right atrium and right ventricle
No arm swelling on the right
Alert and oriented x 3
Cor regular
Remainder as per FUSING MACHINE TENDER note
IMPRESSION:
Chronic systolic HFrEF, 30-35%
Ischemic Cardiomyopathy
s/p Primary prevention DC ICD implant, 09/04/24
CAD/STEMI w/LAD PCI (06/24/24)
Pulmonary edema/hypoxic respiratory failure in setting of SD
HTN
HLD
Obesity
PLAN:
Tele- APaced w/underlying SR, PVC/Bigemeny
Device site stable
Post CXR w/stable lead position, no pneumothorax
Activity limitations reviewed
incision check 1 week at [facility]
continue GDMT for cardiomyopathy/HF
continue uninterrupted DAPT for 12 months post PCI
home today
Original Note:
Today's Communication / Plan
-
activity limitations reviewed
home today
incision check next week
Impression / Plan
-
PCP:Alia Reddy MD
CDY: Shaw Henderson MD
63 y/o, recent late presentation Anterior STEMI s/p LAD BO (06/24/24), with acute systolic HFrEF 30-35%. Maintained on max tolerated GDMT as well as DAPT w/asa, brilinta. Followup echo with EF 30% >40 days post SD/revasc.
Presented to EP lab for DC ICD implant.
IMPRESSION:
Chronic systolic HFrEF, 30-35%
Ischemic Cardiomyopathy
s/p Primary prevention DC ICD implant, 09/04/24
CAD/STEMI w/LAD PCI (06/24/24)
Pulmonary edema/hypoxic respiratory failure in setting of SD
HTN
HLD
Obesity
PLAN:
Tele- APaced w/underlying SR, PVC/Bigemeny
Device site stable
Post CXR w/stable lead position, no pneumothorax
Activity limitations reviewed
incision check 1 week at [facility]
continue GDMT for cardiomyopathy/HF
continue uninterrupted DAPT for 12 months post PCI
home today
Progress Note - Wealth Management Advisor
Subjective
Date of Service: September 05, 2024
Denies cp/palps/dyspnea
oob ambulating
device site without pain
Objective
Labs:
09/05/24 05:49
09/05/24 05:49
Labs
Hgb 12.3 g/dL (13.0-18.0) L 09/05/24 05:49
Hct 36.4 % (39.0-52.0) L 09/05/24 05:49
Plt Count 169 10^3/uL (130-400) 09/05/24 05:49
Sodium 142 mmol/L (135-145) 09/05/24 05:49
Potassium 4.3 mmol/L (3.5-5.1) 09/05/24 05:49
BUN 20 mg/dl (9-20) 09/05/24 05:49
Creatinine 1.3 mg/dL (0.7-1.3) 09/05/24 05:49
Glucose 119 mg/dl (70-99) H 09/05/24 05:49
Vital Signs and I&O:
Vital Signs
Temp Pulse Resp BP Pulse Ox
98.2 F 60 18 123/84 99
09/05/24 07:15 09/05/24 08:00 09/05/24 07:15 09/05/24 07:13 09/05/24 07:15
Vital Signs
Temp Pulse Resp BP Pulse Ox
98.2 F 60 18 123/84 99
09/05/24 07:15 09/05/24 08:00 09/05/24 07:15 09/05/24 07:13 09/05/24 07:15
Physical Exam
Physical Exam
AAOx3, MAEE 5/5
RRR S1 S2 no murmurs
CTA bilat, non labored
soft abd, + bs
right side ACW device site w/aquacel dressing CDI, no ht/bleeding, non tender
bilat extremities w/palpable distal pulses, no edema
--- NOTE | 2024-09-05 08:25 | W.DS.TRANS ---
DC Summary - Upsetter Helper
-
Discharge Instructions:
Discharge Diagnosis/Procedures ICD implant
Diet Low Cholesterol,2 Gram Sodium,Restrict fluids to
64 oz
Driving Restrictions No driving for 1 week
Bathing Restrictions OK to Shower
Specialty Instructions Weigh Daily
Instructions:
Stand-Alone Forms: DC Inst - Implanted Device
Changes to Home Medications: No
Discharge Medications:
DC Medications w/original date entered in [email or web address]
aspirin 81 mg chewable tablet 81 mg PO DAILY 30 days #30 tabs 06/29/24
atorvastatin 40 mg tablet 80 mg (2 x 40 mg) PO QPM 30 days #60 tabs 06/29/24
carvedilol 3.125 mg tablet 3.125 mg PO BID 30 days #60 tabs 06/29/24
dapagliflozin propanediol 10 mg tablet (Farxiga) 10 mg PO DAILY 30 days #30 tabs 06/29/24
furosemide 40 mg tablet 40 mg PO DAILY 30 days #30 tabs 06/29/24
pantoprazole 40 mg tablet,delayed release 40 mg PO DAILY 30 days #30 tabs 06/29/24
ticagrelor 90 mg tablet (Brilinta) 90 mg PO BID 30 days #60 tabs 06/29/24
sacubitril 24 mg-valsartan 26 mg tablet (Entresto) 1 tab PO BID 09/04/24
Home Medication Changes
Pending Results: No
[2024-09-05] MEDS: BRILINTA 90 MG PO (08:40)
[2024-09-05] MEDS: FARXIGA 10 MG PO (08:40)
[2024-09-05] MEDS: COREG 3.125 MG PO (08:40)
[2024-09-05] MEDS: LOW STRENGTH ASPIRIN 81 MG PO (08:41)
[2024-09-05] MEDS: ENTRESTO 24 MG/26 MG 1 TAB PO (08:41)
[2024-09-05] MEDS: PROTONIX 40 MG PO (08:41)
--- NOTE | 2024-09-05 08:42 | CM ---
Reviewed chart. Met with Mr. Romero to review discharge plans. He states prior to admission he resides with his spouse in a three story home with one step to enter. He states he has a full flight of steps to get to bedroom/full bathroom. He
states he has a powder room on the first floor. He states prior to admission he was independent with ambulation and adls. He states he has a CPAP Machine and no other DME in the home. He states he has a prescription plan and uses [facility].
The discharge plan is to return home with his spouse when medically stable.
[2024-09-05] MEDS: AFLURIA (36 mos+) 2024-2025 FORMULA 0.5 ML IM (09:01)
--- NOTE | 2024-09-05 09:57 | PTCARENOTE ---
Received patient this morning resting in bed. Pressure dressing removed by cardiology, patient seen by the surgeon and EXECUTIVE VICE PRESIDENT and is ok for discharge. Giving morning medications however he states he has not taken PO lasix for the past 6 weeks, due to
his creatinine being elevated and that he no longer had edema or sob. Notified Guillermo Cole EXECUTIVE VICE PRESIDENT, will hold this AM dose and patient is aware that he should discuss this at his cardiology follow up appointment. Reviewed discharge instructions and he
states his understanding. Patient discharged home with his .
== END 2024-09-05 09:43 | disposition home or self-care (01) ==
LOC: CATH 10:01
PROVIDERS: Nurse Practitioner; ATTENDING PHYSICIAN Internal Medicine Cardiovascular Disease; FAMILY PHYSICIAN Family Medicine; OTHER PHYSICIAN Internal Medicine Interventional Cardiology
DX: I50.22 Chronic systolic (congestive) heart failure (principal); I25.5 Ischemic cardiomyopathy; E78.5 Hyperlipidemia, unspecified; I11.0 Hypertensive heart disease with heart failure; I25.10 Atherosclerotic heart disease of native coronary artery without angina pectoris; Z95.5 Presence of coronary angioplasty implant and graft; I25.2 Old myocardial infarction; Z79.82 Long term (current) use of aspirin; Z79.02 Long term (current) use of antithrombotics/antiplatelets; Z79.899 Other long term (current) drug therapy; Z79.84 Long term (current) use of oral hypoglycemic drugs; J96.91 Respiratory failure, unspecified with hypoxia; E66.9 Obesity, unspecified
CPT/HCPCS: 33249; 71045; 80048; 83735; 85027; 86803; 90686; 93005; C1721; C1777; C1892; C1898; G0008; Q9967

== ENCOUNTER 2024-09-18 08:43 | Outpatient (RCR) | payer BC, SELFPAY | END 2024-09-18 23:59 | disposition home or self-care (01) | LOC: CRHB 08:43 | PROVIDERS: ATTENDING PHYSICIAN Internal Medicine Interventional Cardiology; FAMILY PHYSICIAN Family Medicine | DX: I25.10 Atherosclerotic heart disease of native coronary artery without angina pectoris (principal); Z95.5 Presence of coronary angioplasty implant and graft; I25.2 Old myocardial infarction | CPT/HCPCS: 93797; 93798; G0422 ==

== ENCOUNTER 2024-10-18 09:00 | Outpatient (RCR) | payer BC, SELFPAY | END 2024-10-18 23:59 | disposition home or self-care (01) | LOC: CRHB 09:00 | PROVIDERS: ATTENDING PHYSICIAN Internal Medicine Interventional Cardiology; FAMILY PHYSICIAN Family Medicine | DX: I25.10 Atherosclerotic heart disease of native coronary artery without angina pectoris (principal); I25.2 Old myocardial infarction; Z95.5 Presence of coronary angioplasty implant and graft | CPT/HCPCS: 93798; G0422 ==

== ENCOUNTER → 2024-10-20 06:36 | Outpatient (REF) | payer BC, SELFPAY ==
[2024-10-20 08:18] LABS: ALT (SGPT) 18 U/L (0-50); AST (SGOT) 23 U/L (17-59); Albumin 4.3 g/dl (3.5-5.0); Alkaline Phosphatase 62 U/L (38-126); Blood Urea Nitrogen 21 mg/dl (9-20); Calcium 8.6 mg/dl (8.4-10.2); Carbon Dioxide 28 mmol/L (22-30); Chloride 104 mmol/L (98-107); Glucose 95 mg/dl (70-99); HDL Cholesterol 40 mg/dl; LDL Cholesterol, Calculated 81 mg/dl; Sodium 144 mmol/L (135-145); Total Bilirubin 1.1 mg/dl (0.2-1.3); Total Cholesterol 146 mg/dl (50-199); Total Protein 7.1 g/dl (6.3-8.2); Triglyceride 125 mg/dl (10-149); Very Low Density Lipoprotein 25 mg/dl (0-30); eGFR 56.48
== END ==
LOC: REG 06:36
PROVIDERS: ATTENDING PHYSICIAN Physician Assistant Medical; FAMILY PHYSICIAN Family Medicine
DX: E78.5 Hyperlipidemia, unspecified (principal); I50.20 Unspecified systolic (congestive) heart failure
CPT/HCPCS: 36415; 80053; 80061

== ENCOUNTER 2024-10-25 08:28 | Outpatient (RCR) | payer BC, SELFPAY | END 2024-10-25 08:32 | disposition home or self-care (01) | LOC: CRHB 08:28 | PROVIDERS: ATTENDING PHYSICIAN Internal Medicine Interventional Cardiology; FAMILY PHYSICIAN Family Medicine | DX: I21.4 Non-ST elevation (NSTEMI) myocardial infarction (principal); Z95.5 Presence of coronary angioplasty implant and graft; I11.0 Hypertensive heart disease with heart failure; I50.9 Heart failure, unspecified | CPT/HCPCS: 93797; 93798 ==

== ENCOUNTER → 2025-01-19 06:29 | Outpatient (REF) | payer BC, SELFPAY ==
[2025-01-19 15:16] LABS: ALT (SGPT) 13 U/L (0-50); AST (SGOT) 20 U/L (17-59); Alkaline Phosphatase 63 U/L (38-126); Blood Urea Nitrogen 25 mg/dl (9-20); Calcium 9.1 mg/dl (8.4-10.2); Carbon Dioxide 31 mmol/L (22-30); Chloride 106 mmol/L (98-107); Glucose 89 mg/dl (70-99); HDL Cholesterol 46 mg/dl; LDL Cholesterol, Calculated 28 mg/dl; Potassium 4.2 mmol/L (3.5-5.1); Sodium 148 mmol/L (135-145); Total Bilirubin 1.2 mg/dl (0.2-1.3); Total Cholesterol 89 mg/dl (50-199); Total Protein 6.8 g/dl (6.3-8.2); Triglyceride 76 mg/dl (10-149); Very Low Density Lipoprotein 15 mg/dl (0-30); eGFR 51.99
== END ==
LOC: REG 06:29
PROVIDERS: ATTENDING PHYSICIAN Internal Medicine Interventional Cardiology; FAMILY PHYSICIAN Family Medicine
DX: E78.2 Mixed hyperlipidemia (principal); I10 Essential (primary) hypertension
CPT/HCPCS: 36415; 80053; 80061

== ENCOUNTER → 2025-07-19 06:22 | Outpatient (REF) | payer BC, SELFPAY ==
[2025-07-19 08:16] LABS: ALT (SGPT) 15 U/L (0-50); AST (SGOT) 20 U/L (17-59); Albumin 4.1 g/dl (3.5-5.0); Alkaline Phosphatase 73 U/L (38-126); Blood Urea Nitrogen 17 mg/dl (9-20); Calcium 8.6 mg/dl (8.4-10.2); Carbon Dioxide 30 mmol/L (22-30); Chloride 107 mmol/L (98-107); Glucose 80 mg/dl (70-99); HDL Cholesterol 51 mg/dl; LDL Cholesterol, Calculated 20 mg/dl; Potassium 4.2 mmol/L (3.5-5.1); Sodium 144 mmol/L (135-145); Total Protein 6.8 g/dl (6.3-8.2); Very Low Density Lipoprotein 12 mg/dl (0-30); eGFR > 60.00
== END ==
LOC: REG 06:22
PROVIDERS: ATTENDING PHYSICIAN Internal Medicine Interventional Cardiology; FAMILY PHYSICIAN Family Medicine
DX: E78.2 Mixed hyperlipidemia (principal)
CPT/HCPCS: 36415; 80053; 80061

== ENCOUNTER → 2025-08-01 08:15 | Outpatient (REF) | payer BC, SELFPAY | LOC: RCS 08:15 | PROVIDERS: ATTENDING PHYSICIAN Internal Medicine Interventional Cardiology; FAMILY PHYSICIAN Family Medicine | DX: I25.5 Ischemic cardiomyopathy (principal) | CPT/HCPCS: 93306 ==